=== PATIENT | female | born 1955 | race Caucasian/White ===

== ENCOUNTER → 2017-02-26 | Outpatient (CLI) | payer BC ==
[2017-02-26 10:07] LABS: ALT 34 U/L (9-52); AST 25 U/L (14-36); Alkaline Phosphatase 77 U/L (38-126); Anion Gap 10 mmol/L; Blood Urea Nitrogen 20 mg/dL (7-17); Calcium 9.4 mg/dL (8.4-10.2); Carbon Dioxide 27 mmol/L (22-30); Chloride 107 mmol/L (98-107); Cholesterol 214 mg/dL (<200); Glucose 93 mg/dL (74-99); HDL Cholesterol 49 mg/dL (40-60); Non-African American GFR(MDRD) >60 (>60 ml/min/1.73 sqM); Potassium 4.6 mmol/L (3.5-5.1); Sodium 144 mmol/L (137-145); Total Bilirubin 0.6 mg/dL (0.2-1.3); Total Protein 7.2 g/dL (6.3-8.2); Triglycerides 217 mg/dL (<150)
[2017-02-26 10:09] LABS: CHCM 33.7; HCT 41.8 % (34.0-46.0); HDW 2.74; HGB 13.7 gm/dL (11.4-16.0); MCH 30.4 pg (25.0-35.0); MCHC 32.8 g/dL (31.0-37.0); MCV 92.7 fL (80.0-100.0); Mean Platelet Volume 6.5; RBC 4.51 m/uL (3.80-5.40); RDW 13.7 % (11.5-15.5); WBC 6.9 k/uL (3.8-10.6)
== END | disposition home or self-care (01) ==
LOC: LABWHC1 08:53
PROVIDERS: ATTEND Internal Medicine
DX: Z00.01 Encounter for general adult medical examination with abnormal findings (principal); R53.83 Other fatigue
CPT/HCPCS: 36415; 80053; 80061; 84439; 84443; 85027

== ENCOUNTER 2017-09-26 07:22 | Emergency (ER) | payer BC ==
[2017-09-26] MEDS ORDERED: ONDANSETRON 4 MG/2 ML VIAL IVP STA (07:41)
[2017-09-26] MEDS ORDERED: SODIUM CHLORIDE 0.9% 1,000 ML IV STA ×2 (07:41)
[2017-09-26] MEDS ORDERED: PANTOPRAZOLE 40 MG/10 ML VIAL IVP STA (07:42)
[2017-09-26] MEDS ORDERED: RX INFO: IV CONTRAST WAS GIVEN 1 EACH MISC MISCELLANE PRN (08:24)
[2017-09-26 08:25] LABS: Basophils % (A) 1 %; Eosinophils % (A) 0 %; HCT 41.3 % (34.0-46.0); Lymphocytes # (A) 0.5 k/uL (1.0-4.8); Lymphocytes % (A) 11 %; MCH 29.9 pg (25.0-35.0); MCHC 33.9 g/dL (31.0-37.0); MCV 88.1 fL (80.0-100.0); Mean Platelet Volume 6.9; Monocytes # (A) 0.4 k/uL (0-1.0); Monocytes % (A) 9 %; Neutrophils # (A) 3.4 k/uL (1.3-7.7); Neutrophils % (A) 76 %; Platelet Count 202 k/uL (150-450); RBC 4.69 m/uL (3.80-5.40); RDW 12.9 % (11.5-15.5); WBC 4.5 k/uL (3.8-10.6)
[2017-09-26 08:29] LABS: Appearance,Urine Clear (Clear); Bilirubin,Urine Negative (Negative); Blood,Urine Negative (Negative); Color,Urine Light Yellow; Glucose,Urine (UA) Negative (Negative); Ketones,Urine Trace (Negative); Leukocyte Esterase,Urine Negative (Negative); Nitrite,Urine Negative (Negative); PH, Urine 5.5 (5.0-8.0); Protein,Urine Negative (Negative); Specific Gravity,Urine 1.004 (1.001-1.035); Urobilinogen,Urine <2.0 mg/dL (<2.0)
[2017-09-26 08:35] LABS: INR 1.1 (<1.2); Partial Thromboplastin Time 24.5 sec (22.0-30.0); Prothrombin Time 10.8 sec (9.0-12.0)
--- NOTE | 2017-09-26 08:38 | ED ---
General Adult HPI - General Chief complaint: Nausea/Vomiting/Diarrhea Stated complaint: Vomiting Time Seen by Provider: 09/26/17 07:41 Source: patient, RN notes reviewed, old records reviewed Mode of arrival: ambulatory Limitations: no limitations - History of Present Illness Initial comments: This is a 62-year-old male to the ER for evaluation. Patient presents to ER for nausea vomiting abdominal pain. Patient has had multiple issues with pain and if she is last basely 2 weeks, was started on 2 different antibiotics as well as Tamiflu. No help. Patient denies any fevers. No travel history no sick contacts. No known family members with similar symptoms. Patient just feels very sick, unable to keep food down, and has continuous pain. - Related Data Home Medications Medication Instructions Recorded Confirmed Acetaminophen Tab [Tylenol Tab] 1,000 mg PO BID PRN 08/28/16 09/26/17 Carisoprodol [Soma] 350 mg PO QID 08/28/16 09/26/17 Celecoxib [CeleBREX] 200 mg PO DAILY PRN 08/28/16 09/26/17 LORazepam [Ativan] 0.5 mg PO TID 08/28/16 09/26/17 Ondansetron [Zofran ODT] 8 mg SL QID PRN 08/28/16 09/26/17 Prochlorperazine [Compazine] 20 mg PO BID PRN 08/28/16 09/26/17 traMADol HCl [Ultram] 100 mg PO TID PRN 08/28/16 09/26/17 CLIDINIUM-chlordiazePOXIDE [Librax] 1 tab PO AC-TID PRN 09/26/17 09/26/17 Doxycycline Hyclate 100 mg PO BID 09/26/17 09/26/17 Oseltamivir [Tamiflu] 75 mg PO DAILY 09/26/17 09/26/17 Promethazine/Dextromethorphan 10 ml PO Q6H PRN 09/26/17 09/26/17 [Promethazine-Dm Syrup] Allergies Allergy/AdvReac Type Severity Reaction Status Date / Time cephalexin AdvReac Nausea & Verified 09/26/17 07:54 Vomiting ciprofloxacin AdvReac Nausea & Verified 09/26/17 07:54 Vomiting egg AdvReac Nausea & Verified 09/26/17 07:54 Vomiting & Diarrhea Penicillins AdvReac Unknown Verified 09/26/17 07:54 Childhood Review of Systems ROS Statement: Those systems with pertinent positive or pertinent negative responses have been documented in the HPI. ROS Other: All systems not noted in ROS Statement are negative. Past Medical History Past Medical History: Eye Disorder, Hyperlipidemia, Neurologic Disorder, Osteoarthritis (OA) Additional Past Medical History / Comment(s): CORNELIO TREJO. OSTEOPOROSIS. GLAUCOMA. HYPOGLYCEMIA History of Any Multi-Drug Resistant Organisms: None Reported Past Surgical History: Hysterectomy, Orthopedic Surgery Additional Past Surgical History / Comment(s): COLONOSCOPY. RT SHOULDER SX WITH MANIPULATIONS. RT KNEE SCOPE WITH INJECTIONS. POLYPS REMOVED FROM THROAT Past Anesthesia/Blood Transfusion Reactions: Motion Sickness, Postoperative Nausea & Vomiting (PONV) Past Psychological History: Anxiety Smoking Status: Former smoker - Past Family History Father Family Medical History: Cancer Additional Family Medical History / Comment(s): LUNG General Exam Limitations: no limitations General appearance: alert, in no apparent distress Head exam: Present: atraumatic, normocephalic, normal inspection Eye exam: Present: normal appearance, PERRL, EOMI. Absent: scleral icterus, conjunctival injection, periorbital swelling ENT exam: Present: normal exam, mucous membranes moist Neck exam: Present: normal inspection. Absent: tenderness, meningismus, lymphadenopathy Respiratory exam: Present: normal lung sounds bilaterally. Absent: respiratory distress, wheezes, rales, rhonchi, stridor Cardiovascular Exam: Present: regular rate, normal rhythm, normal heart sounds. Absent: systolic murmur, diastolic murmur, rubs, gallop, clicks GI/Abdominal exam: Present: soft, normal bowel sounds. Absent: distended, tenderness, guarding, rebound, rigid Extremities exam: Present: normal inspection, full ROM, normal capillary refill. Absent: tenderness, pedal edema, joint swelling, calf tenderness Back exam: Present: normal inspection Neurological exam: Present: alert, oriented X3, CN II-XII intact Psychiatric exam: Present: normal affect, normal mood Skin exam: Present: warm, dry, intact, normal color. Absent: rash Course Vital Signs 09/26/17 07:26 Temperature 97.8 F Pulse Rate 86 Respiratory 16 Rate Blood Pressure 129/79 O2 Sat by Pulse 97 Oximetry - Reevaluation(s) Reevaluation #1: 09/26/17 10:14 Patient states her nausea vomiting and pain is improved at this time EKG Findings - EKG Comments: EKG Findings:: EKG shows normal sinus rhythm rate of 66, DC 162, QRS 76, QTc 452 Medical Decision Making - Medical Decision Making 61 [place] [facility] for evaluation. Patient's 21 for evaluation of off and while, generalized body aches and pains. Nausea and vomiting. Patient is positive for influenza currently on Tamiflu will continue 10 the patient can be discharged home - Lab Data Result diagrams: 09/26/17 08:05 09/26/17 08:05 Lab Results 09/26/17 09/26/17 09/26/17 Range/Units 08:00 08:05 08:05 WBC 4.5 (3.8-10.6) k/uL RBC 4.69 (3.80-5.40) m/uL Hgb 14.0 (11.4-16.0) gm/dL Hct 41.3 (34.0-46.0) % MCV 88.1 (80.0-100.0) fL MCH 29.9 (25.0-35.0) pg MCHC 33.9 (31.0-37.0) g/dL RDW 12.9 (11.5-15.5) % Plt Count 202 (150-450) k/uL Neutrophils % 76 % Lymphocytes % 11 % Monocytes % 9 % Eosinophils % 0 % Basophils % 1 % Neutrophils # 3.4 (1.3-7.7) k/uL Lymphocytes # 0.5 L (1.0-4.8) k/uL Monocytes # 0.4 (0-1.0) k/uL Eosinophils # 0.0 (0-0.7) k/uL Basophils # 0.0 (0-0.2) k/uL PT (9.0-12.0) sec INR (<1.2) APTT (22.0-30.0) sec Sodium (137-145) mmol/L Potassium (3.5-5.1) mmol/L Chloride (98-107) mmol/L Carbon Dioxide (22-30) mmol/L Anion Gap mmol/L BUN (7-17) mg/dL Creatinine (0.52-1.04) mg/dL Est GFR (MDRD) Af Amer (>60 ml/min/1.73 sqM) Est GFR (MDRD) Non-Af (>60 ml/min/1.73 sqM) Glucose (74-99) mg/dL Plasma Lactic Acid Jose Rafael (0.7-2.0) mmol/L Calcium (8.4-10.2) mg/dL Phosphorus (2.5-4.5) mg/dL Magnesium (1.6-2.3) mg/dL Total Bilirubin (0.2-1.3) mg/dL AST (14-36) U/L ALT (9-52) U/L Alkaline Phosphatase (38-126) U/L Total Creatine Kinase 108 (30-135) U/L CK-MB (CK-2) <0.2 (0.0-2.4) ng/mL CK-MB (CK-2) Rel Index Troponin I <0.012 (0.000-0.034) ng/mL Total Protein (6.3-8.2) g/dL Albumin (3.5-5.0) g/dL Urine Color Light Yellow Urine Appearance Clear (Clear) Urine pH 5.5 (5.0-8.0) Ur Specific [place] 1.004 (1.001-1.035) Urine Protein Negative (Negative) Urine Glucose (UA) Negative (Negative) Urine Ketones Trace H (Negative) Urine Blood Negative (Negative) Urine Nitrite Negative (Negative) Urine Bilirubin Negative (Negative) Urine Urobilinogen <2.0 (<2.0) mg/dL Ur Leukocyte Esterase Negative (Negative) Influenza Type A RNA (Not Detectd) Influenza Type B (PCR) (Not Detectd) 09/26/17 09/26/17 09/26/17 Range/Units 08:05 08:05 08:05 WBC (3.8-10.6) k/uL RBC (3.80-5.40) m/uL Hgb (11.4-16.0) gm/dL Hct (34.0-46.0) % MCV (80.0-100.0) fL MCH (25.0-35.0) pg MCHC (31.0-37.0) g/dL RDW (11.5-15.5) % Plt Count (150-450) k/uL Neutrophils % % Lymphocytes % % Monocytes % % Eosinophils % % Basophils % % Neutrophils # (1.3-7.7) k/uL Lymphocytes # (1.0-4.8) k/uL Monocytes # (0-1.0) k/uL Eosinophils # (0-0.7) k/uL Basophils # (0-0.2) k/uL PT 10.8 (9.0-12.0) sec INR 1.1 (<1.2) APTT 24.5 (22.0-30.0) sec Sodium 141 (137-145) mmol/L Potassium 3.6 (3.5-5.1) mmol/L Chloride 106 (98-107) mmol/L Carbon Dioxide 24 (22-30) mmol/L Anion Gap 11 mmol/L BUN 11 (7-17) mg/dL Creatinine 0.69 (0.52-1.04) mg/dL Est GFR (MDRD) Af Amer >60 (>60 ml/min/1.73 sqM) Est GFR (MDRD) Non-Af >60 (>60 ml/min/1.73 sqM) Glucose 108 H (74-99) mg/dL Plasma Lactic Acid Jose Rafael 1.0 (0.7-2.0) mmol/L Calcium 9.2 (8.4-10.2) mg/dL Phosphorus 3.0 (2.5-4.5) mg/dL Magnesium 1.9 (1.6-2.3) mg/dL Total Bilirubin 0.3 (0.2-1.3) mg/dL AST 31 (14-36) U/L ALT 37 (9-52) U/L Alkaline Phosphatase 79 (38-126) U/L Total Creatine Kinase (30-135) U/L CK-MB (CK-2) (0.0-2.4) ng/mL CK-MB (CK-2) Rel Index Troponin I (0.000-0.034) ng/mL Total Protein 6.8 (6.3-8.2) g/dL Albumin 4.0 (3.5-5.0) g/dL Urine Color Urine Appearance (Clear) Urine pH (5.0-8.0) Ur Specific [place] (1.001-1.035) Urine Protein (Negative) Urine Glucose (UA) (Negative) Urine Ketones (Negative) Urine Blood (Negative) Urine Nitrite (Negative) Urine Bilirubin (Negative) Urine Urobilinogen (<2.0) mg/dL Ur Leukocyte Esterase (Negative) Influenza Type A RNA (Not Detectd) Influenza Type B (PCR) (Not Detectd) 09/26/17 Range/Units 08:12 WBC (3.8-10.6) k/uL RBC (3.80-5.40) m/uL Hgb (11.4-16.0) gm/dL Hct (34.0-46.0) % MCV (80.0-100.0) fL MCH (25.0-35.0) pg MCHC (31.0-37.0) g/dL RDW (11.5-15.5) % Plt Count (150-450) k/uL Neutrophils % % Lymphocytes % % Monocytes % % Eosinophils % % Basophils % % Neutrophils # (1.3-7.7) k/uL Lymphocytes # (1.0-4.8) k/uL Monocytes # (0-1.0) k/uL Eosinophils # (0-0.7) k/uL Basophils # (0-0.2) k/uL PT (9.0-12.0) sec INR (<1.2) APTT (22.0-30.0) sec Sodium (137-145) mmol/L Potassium (3.5-5.1) mmol/L Chloride (98-107) mmol/L Carbon Dioxide (22-30) mmol/L Anion Gap mmol/L BUN (7-17) mg/dL Creatinine (0.52-1.04) mg/dL Est GFR (MDRD) Af Amer (>60 ml/min/1.73 sqM) Est GFR (MDRD) Non-Af (>60 ml/min/1.73 sqM) Glucose (74-99) mg/dL Plasma Lactic Acid Jose Rafael (0.7-2.0) mmol/L Calcium (8.4-10.2) mg/dL Phosphorus (2.5-4.5) mg/dL Magnesium (1.6-2.3) mg/dL Total Bilirubin (0.2-1.3) mg/dL AST (14-36) U/L ALT (9-52) U/L Alkaline Phosphatase (38-126) U/L Total Creatine Kinase (30-135) U/L CK-MB (CK-2) (0.0-2.4) ng/mL CK-MB (CK-2) Rel Index Troponin I (0.000-0.034) ng/mL Total Protein (6.3-8.2) g/dL Albumin (3.5-5.0) g/dL Urine Color Urine Appearance (Clear) Urine pH (5.0-8.0) Ur Specific [place] (1.001-1.035) Urine Protein (Negative) Urine Glucose (UA) (Negative) Urine Ketones (Negative) Urine Blood (Negative) Urine Nitrite (Negative) Urine Bilirubin (Negative) Urine Urobilinogen (<2.0) mg/dL Ur Leukocyte Esterase (Negative) Influenza Type A RNA Not Detected (Not Detectd) Influenza Type B (PCR) Detected H (Not Detectd) - Radiology Data Radiology results: report reviewed (CT chest abdomen pelvis negative), image reviewed Disposition Clinical Impression: Influenza B Disposition: HOME SELF-CARE Condition: Good Instructions: Influenza (ED) Referrals: Allison Camarillo MD [Primary Care Provider] - 1-2 days
[2017-09-26 08:40] LABS: ALT 37 U/L (9-52); AST 31 U/L (14-36); Alkaline Phosphatase 79 U/L (38-126); Anion Gap 11 mmol/L; Blood Urea Nitrogen 11 mg/dL (7-17); Calcium 9.2 mg/dL (8.4-10.2); Carbon Dioxide 24 mmol/L (22-30); Chloride 106 mmol/L (98-107); Glucose 108 mg/dL (74-99); Magnesium 1.9 mg/dL (1.6-2.3); Potassium 3.6 mmol/L (3.5-5.1); Sodium 141 mmol/L (137-145); Total Bilirubin 0.3 mg/dL (0.2-1.3); Total Protein 6.8 g/dL (6.3-8.2)
[2017-09-26] MEDS ORDERED: KETOROLAC 30 MG/ML 1 ML VIAL IVP STA (08:45)
[2017-09-26] MEDS ORDERED: DEXAMETHASONE SOD PHOSPHATE 10 MG/ML 1 ML VIAL IM STA (08:45)
[2017-09-26 08:52] LABS: Creatine Kinase 108 U/L (30-135)
[2017-09-26 09:04] LABS: Creatine Kinase MB <0.2 ng/mL (0.0-2.4); Troponin I <0.012 ng/mL (0.000-0.034)
--- NOTE | 2017-09-26 09:40 | CT ---
EXAMINATION TYPE: CT abdomen pelvis w con DATE OF EXAM: 09/26/2017 COMPARISON: CT abdomen pelvis 03/25/2011 INDICATION: Vomiting, Generalized pain and Positive Flu DLP: 1699.00 mGycm, Automated exposure control for dose reduction was used. CONTRAST: 100 ml mL of Omnipaque 350. Study performed without Oral Contrast TECHNIQUE: Axial images were obtained from above the diaphragm to the pubic rami in the axial plane a t 5 mm thick sections. Reconstructed images are reviewed on the computer in the coronal plane. FINDINGS: CT chest: Minimal scarring may be at the left apex. Minimal compressive atelectasis is within the dep endent portions of the lung bases. No discrete masses or cysts are evident. Portion of the thyroid visualized is normal. The subglottic airway appears unremarkable. The ascendin g thoracic aorta at the level of the main pulmonary artery measures 2.9 cm patent main pulmonary ren ry at the bifurcation measures 2.7 cm. No enlarged mediastinal or hilar adenopathy is evident. CT ABDOMEN: Liver: There is a 1.1 cm hypodensity within the superior right lobe liver measuring -6 [place]ounsfield uni ts may be a cyst. A punctate hypodensities in the posterior right portion of the liver too small to c haracterize. Additional punctate hypodensities on delayed images with contrast suggestive of addition al tiny cysts. Spleen: Normal. Splenule is anterior to the splenic hilum. Pancreas: Normal Adrenal glands: The adrenal glands are normal. Gallbladder: Normal Kidneys: No masses are evident. No hydronephrosis is present. There is a hypodense area within the lateral left kidney. This measures 43 Hounsfield units. This cannot be classified as a simple cyst. F ollow-up is recommended. Delayed images were obtained through the kidneys. Aorta: Vascular calcification is within the aorta. Inferior vena cava: Normal. CT PELVIS: Loops of bowel within the abdomen and pelvis are normal. Study is performed without oral contrast limiting evaluation of loops of bowel. A few diverticular changes are within the sigmoid colon. No d ilated loops of bowel are evident. No suspicious air-fluid levels or fluid dilated loops of bowel are evident. Appendix: Normal as visualized. Urinary bladder: Normal. Genitourinary structures: Uterus and ovaries are not identified. Osseous structures: No suspicious lytic or sclerotic lesions. Some mild facet degenerative changes wi thin the lower lumbar spine. COMPARISON: CT abdomen pelvis 07/26/2011. These suspected cysts within the liver and left kidney appe ar stable over the interval. IMPRESSIONS: 1. No acute process. 2. Hepatic cysts. 3. Stable complex cyst left kidney
--- NOTE | 2017-09-26 09:58 | CT ---
CT CHEST FOR PULMONARY EMBOLISM. EXAMINATION TYPE: CT angio chest DATE OF EXAM: 09/26/2017 INDICATION: Vomiting, Generalized pain, Positive flu CT DLP: 1699.00 mGycm, Automated exposure control for dose reduction was used. CONTRAST: Patient injected with 100 ml mL of Omnipaque 350. COMPARISON: CT abdomen pelvis same date. TECHNIQUE: CT of the chest is performed on a spiral scan at 2 mm thick sections. Study is performed with intravenous contrast timed for evaluation for pulmonary embolism. This will limit additional po rtions of the evaluation. 3-D MIP images reconstructed by the technologist are reviewed on the compu ter in the coronal and sagittal planes. FINDINGS: This dictation supplements the CT abdomen dictation of 09/26/2016 No persistent filling defects are evident to suggest an acute pulmonary embolism. No mediastinal or hilar adenopathy enlarged by CT criteria is evident. The ascending aorta diameter at the level of the main pulmonary artery is 2.9 cm. The main pulmonary artery diameter at the bifur cation is 2.7 cm. There may be minimal scarring at the left apex. Minimal compressive atelectasis is within the depende nt portions of the bilateral lung bases. No discrete masses or consolidations are evident. Minimal 0. 4 cm pleural thickening along the posterior lateral left upper lobe may be present. Series [address] abdomen pelvis report for additional nonacute findings. IMPRESSIONS: 1. No acute pulmonary embolism.
[2017-09-26 10:42] VITALS: BP 132/59; PULSE 64; RESP 18; TEMP 97
== END 2017-09-26 10:42 | disposition home or self-care (01) ==
LOC: EC 07:22
DX: J10.1 Influenza due to other identified influenza virus with other respiratory manifestations (principal); F41.9 Anxiety disorder, unspecified; Z87.891 Personal history of nicotine dependence; Z88.1 Allergy status to other antibiotic agents; Z88.0 Allergy status to penicillin; Z91.012 Allergy to eggs; Z79.899 Other long term (current) drug therapy
CPT/HCPCS: 99285; 96372; 96374; 96375 ×2; 96361 ×2; 36415; 93005; 80053; 82550; 82553; 83605; 83735; 84100; 84484; 85025; 85610; 85730; 81003; 87086; 87502; 71275; 74177; J1100; Q9967; J2405; J1885; C9113

== ENCOUNTER → 2018-10-15 | Outpatient (CLI) | payer BC ==
--- NOTE | 2018-10-17 09:58 | MM ---
Reason for exam: screening (asymptomatic). Last mammogram was performed 1 year and 8 months ago. History: Patient had first child at age 32. Family history of breast cancer in maternal aunt at age 60. Physical Findings: A clinical breast exam by your physician is recommended on an annual basis and results should be correlated with mammographic findings. MG 3D Screening Mammo W/Cad Bilateral CC and MLO view(s) were taken. Prior study comparison: February 21, 2017, mammogram, performed at [facility]. March 17, 2015, mammogram, performed at [facility]. The breast tissue is almost entirely fat. There is chronic nodularity bilaterally. No significant changes when compared with prior studies. ASSESSMENT: Benign, BI-RAD 2 RECOMMENDATION: Routine screening mammogram of both breasts in 1 year.
== END | disposition home or self-care (01) ==
LOC: RADMAMWWP 16:41
PROVIDERS: ATTEND Internal Medicine
DX: Z12.31 Encounter for screening mammogram for malignant neoplasm of breast (principal)
CPT/HCPCS: 77063; 77067

== ENCOUNTER 2018-12-17 06:06 | Inpatient (IN) | payer BC ==
[2018-12-17] MEDS ORDERED: SODIUM CHLORIDE 0.9% 2,000 ML IV STA (07:10)
[2018-12-17] MEDS ORDERED: KETOROLAC 30 MG/ML 1 ML VIAL IVP STA (07:10)
[2018-12-17] MEDS ORDERED: diphenhydrAMINE 50 MG/ML 1 ML VIAL IVP STA (07:10)
[2018-12-17] MEDS ORDERED: ONDANSETRON 4 MG/2 ML VIAL IVP STA (07:10)
--- NOTE | 2018-12-17 07:14 | ED ---
Abdominal Pain HPI - General Source: patient, family, RN notes reviewed Mode of arrival: ambulatory Limitations: no limitations <Romeo Garcia - Last Filed: 12/17/18 09:34> <Oswald Cox - Last Filed: 12/17/18 09:56> - General Chief Complaint: Abdominal Pain Stated Complaint: NVD Time Seen by Provider: 12/17/18 07:05 - History of Present Illness Initial Comments: This a 63-year-old female presents emergency Department chief complaint of nausea vomiting and diarrhea. Patient states that she woke up onto a.m. with this. Patient states is a sudden onset she does have some upper abdominal pain or left-sided but states that she feels this is from vomiting. Patient has been recently treated for urinary tract infection. Denies any known fever complaints or chills. Denies any shortness breath, headache or dizziness. Patient states that she just feels miserable no contacts with some her symptoms. Patient had a prior hysterectomy. Patient also states that she injured her right knee. Patient had prior miscarriages repair in October states that she got up quickly and twisted it. Patient states painful. Patient states cannot take pain meds as they make her sick. (Romeo Garcia) - Related Data Home Medications Medication Instructions Recorded Confirmed Acetaminophen Tab [Tylenol Tab] 1,000 mg PO BID PRN 08/28/16 12/17/18 Carisoprodol [Soma] 350 mg PO TID 08/28/16 12/17/18 Celecoxib [CeleBREX] 200 mg PO BID 08/28/16 12/17/18 LORazepam [Ativan] 0.5 mg PO TID 08/28/16 12/17/18 Prochlorperazine [Compazine] 20 mg PO BID PRN 08/28/16 12/17/18 Previous Rx's Medication Instructions Recorded Ondansetron Odt [Zofran ODT] 4 mg PO Q8HR PRN #30 tab 09/26/17 Allergies Allergy/AdvReac Type Severity Reaction Status Date / Time cephalexin AdvReac Nausea & Verified 12/17/18 08:11 Vomiting ciprofloxacin AdvReac Nausea & Verified 12/17/18 08:11 Vomiting codeine AdvReac Unknown Verified 12/17/18 08:11 egg AdvReac Nausea & Verified 12/17/18 08:11 Vomiting & Diarrhea Penicillins AdvReac Unknown Verified 12/17/18 08:11 Childhood Review of Systems ROS Other: All systems not noted in ROS Statement are negative. <Romeo Garcia - Last Filed: 12/17/18 09:34> ROS Other: All systems not noted in ROS Statement are negative. <Oswald Cox - Last Filed: 12/17/18 09:56> ROS Statement: Those systems with pertinent positive or pertinent negative responses have been documented in the HPI. Past Medical History Past Medical History: Eye Disorder, Hyperlipidemia, Neurologic Disorder, Osteoarthritis (OA) Additional Past Medical History / Comment(s): CORNELIO TREJO. OSTEOPOROSIS. GLAUCOMA. HYPOGLYCEMIA History of Any Multi-Drug Resistant Organisms: None Reported Past Surgical History: Hysterectomy, Orthopedic Surgery Additional Past Surgical History / Comment(s): COLONOSCOPY. RT SHOULDER SX WITH MANIPULATIONS. RT KNEE SCOPE WITH INJECTIONS. POLYPS REMOVED FROM THROAT Past Anesthesia/Blood Transfusion Reactions: Motion Sickness, Postoperative Nausea & Vomiting (PONV) Past Psychological History: Anxiety Smoking Status: Former smoker Past Alcohol Use History: None Reported Past Drug Use History: None Reported - Past Family History Father Family Medical History: Cancer Additional Family Medical History / Comment(s): LUNG <Romeo Garcia - Last Filed: 12/17/18 09:34> General Exam Limitations: no limitations General appearance: alert, in no apparent distress Head exam: Present: atraumatic, normocephalic, normal inspection Neck exam: Present: normal inspection. Absent: tenderness, meningismus, lymphadenopathy Respiratory exam: Present: normal lung sounds bilaterally. Absent: respiratory distress, wheezes, rales, rhonchi, stridor Cardiovascular Exam: Present: regular rate, normal rhythm, normal heart sounds. Absent: systolic murmur, diastolic murmur, rubs, gallop, clicks GI/Abdominal exam: Present: soft, tenderness (Mild epigastric), normal bowel sounds. Absent: distended, guarding, rebound, rigid Neurological exam: Present: alert, oriented X3, CN II-XII intact Skin exam: Present: warm, dry, intact, normal color. Absent: rash <Romeo Garcia - Last Filed: 12/17/18 09:34> Course <Oswald Cox - Last Filed: 12/17/18 09:56> Vital Signs 12/17/18 12/17/18 06:24 09:54 Temperature 97.7 F 97.6 F Pulse Rate 94 86 Respiratory 18 20 Rate Blood Pressure 128/72 126/67 O2 Sat by Pulse 99 97 Oximetry - Reevaluation(s) Reevaluation #1: 12/17/18 09:56 PA supervision I did personally review this case and did discuss findings with Dr. Brannon the patient be admitted with consultation by surgery. Diverticulitis versus colitis. I do agree with the assessment and plan (Oswald Cox) Medical Decision Making - Lab Data Result diagrams: 12/17/18 07:49 12/17/18 07:49 <Romeo Garcia - Last Filed: 12/17/18 09:34> - Lab Data Result diagrams: 12/17/18 07:49 12/17/18 07:49 <Oswald Cox - Last Filed: 12/17/18 09:56> - Medical Decision Making 63-year-old female presented for abdominal pain. Patient CT shows evidence of multifocal colitis versus diverticulitis. Patient's symptoms are consistent with this. Patient will be admitted for IV antibiotics, IV hydration, antiemetics and pain medication (Romeo Garcia) - Lab Data Lab Results 12/17/18 12/17/18 12/17/18 Range/Units 07:49 07:49 07:49 WBC 11.2 H (3.8-10.6) k/uL RBC 4.40 (3.80-5.40) m/uL Hgb 13.2 (11.4-16.0) gm/dL Hct 38.8 (34.0-46.0) % MCV 88.2 (80.0-100.0) fL MCH 30.0 (25.0-35.0) pg MCHC 34.0 (31.0-37.0) g/dL RDW 13.8 (11.5-15.5) % Plt Count 260 (150-450) k/uL Neutrophils % 92 % Lymphocytes % 3 % Monocytes % 3 % Eosinophils % 2 % Basophils % 0 % Neutrophils # 10.3 H (1.3-7.7) k/uL Lymphocytes # 0.3 L (1.0-4.8) k/uL Monocytes # 0.3 (0-1.0) k/uL Eosinophils # 0.2 (0-0.7) k/uL Basophils # 0.0 (0-0.2) k/uL Sodium 141 (137-145) mmol/L Potassium 4.0 (3.5-5.1) mmol/L Chloride 109 H (98-107) mmol/L Carbon Dioxide 24 (22-30) mmol/L Anion Gap 8 mmol/L BUN 18 H (7-17) mg/dL Creatinine 0.55 (0.52-1.04) mg/dL Est GFR (CKD-EPI)AfAm >90 (>60 ml/min/1.73 sqM) Est GFR (CKD-EPI)NonAf >90 (>60 ml/min/1.73 sqM) Glucose 137 H (74-99) mg/dL Calcium 9.4 (8.4-10.2) mg/dL Total Bilirubin 0.5 (0.2-1.3) mg/dL AST 28 (14-36) U/L ALT 35 (9-52) U/L Alkaline Phosphatase 82 (38-126) U/L Troponin I <0.012 (0.000-0.034) ng/mL Total Protein 6.7 (6.3-8.2) g/dL Albumin 4.0 (3.5-5.0) g/dL Amylase 52 (30-110) U/L Lipase 102 (23-300) U/L Disposition <Romeo Garcia - Last Filed: 12/17/18 09:34> <Oswald Cox - Last Filed: 12/17/18 09:56> Clinical Impression: Diverticulitis Disposition: ADMITTED IP TO THIS HOSP Condition: Fair Referrals: Allison Camarillo MD [Primary Care Provider] - 1-2 days
[2018-12-17 07:59] LABS: Basophils % (A) 0 %; Eosinophils # (A) 0.2 k/uL (0-0.7); Eosinophils % (A) 2 %; HCT 38.8 % (34.0-46.0); HGB 13.2 gm/dL (11.4-16.0); Lymphocytes # (A) 0.3 k/uL (1.0-4.8); Lymphocytes % (A) 3 %; MCV 88.2 fL (80.0-100.0); Mean Platelet Volume 6.6; Monocytes # (A) 0.3 k/uL (0-1.0); Monocytes % (A) 3 %; Neutrophils # (A) 10.3 k/uL (1.3-7.7); Neutrophils % (A) 92 %; Platelet Count 260 k/uL (150-450); RDW 13.8 % (11.5-15.5); WBC 11.2 k/uL (3.8-10.6)
[2018-12-17 08:11] LABS: ALT 35 U/L (9-52); AST 28 U/L (14-36); Alkaline Phosphatase 82 U/L (38-126); Amylase 52 U/L (30-110); Anion Gap 8 mmol/L; Blood Urea Nitrogen 18 mg/dL (7-17); Calcium 9.4 mg/dL (8.4-10.2); Carbon Dioxide 24 mmol/L (22-30); Chloride 109 mmol/L (98-107); Glucose 137 mg/dL (74-99); Lipase 102 U/L (23-300); Sodium 141 mmol/L (137-145); Total Bilirubin 0.5 mg/dL (0.2-1.3); Total Protein 6.7 g/dL (6.3-8.2)
--- NOTE | 2018-12-17 08:45 | CT ---
EXAMINATION TYPE: CT abdomen pelvis w con DATE OF EXAM: 12/17/2018 HISTORY: Pain, nausea, vomiting, and diarrhea CT DLP: 1090.3mGycm Automated Exposure Control for Dose Reduction was Utilized. CONTRAST: CT scan of the abdomen and pelvis is performed with IV Contrast, patient injected with 100 mL of Isov ue 300. COMPARISON: 09/26/2017 FINDINGS: LUNG BASES: There is minimal bibasilar dependent subsegmental atelectasis. There is a small hiatal he rnia present.. LIVER/GB: Stable hepatic cyst and too small to accurately characterize additional hepatic lesion on i mage 9. Additional scattered subcentimeter lesions are markedly hypoattenuated and likely represent p unctate cysts. No cholelithiasis. Common bile duct is within normal limits on coronal image 40 measur ing 5 mm. PANCREAS: No significant abnormality is seen. SPLEEN: Splenule is present adjacent to the minto spleen. ADRENALS: There is thickening of the left adrenal gland although it maintains a normal adreniform sha pe suggesting adrenal gland hyperplasia.. KIDNEYS: Stable left renal lesion that is subcentimeter and too small to accurately characterize (6 m m). No hydronephrosis of either kidney. BOWEL: There is subtle pericolonic fat stranding of the sigmoid colon surrounding numerous sigmoid co lonic diverticuli. No pericolonic abscess nor pneumoperitoneum is seen. Very subtle fat stranding of the transverse colon and hepatic flexure are also seen. No dilated large or small bowel. UTERUS/ADNEXA: Uterus is surgically absent. LYMPH NODES: No greater than 1cm abdominal or pelvic lymph nodes are appreciated. OSSEOUS STRUCTURES: No significant abnormality is seen. OTHER: Urinary bladder wall thickening is subtle and may partially relate to incomplete distention or surrounding inflammatory change. IMPRESSION: 1. Although mild pericolonic fat stranding is most pronounced in the sigmoid colon surrounding divert iculi there is also very subtle pericolonic fat stranding of the hepatic flexure and transverse colon and therefore differential includes both multifocal colitis and acute uncomplicated diverticulitis. 2. Small hiatal hernia. 3. Simple hepatic cyst and too small to accurately characterize hepatic and renal lesions.
[2018-12-17] MEDS ORDERED: NALOXONE 0.4 MG/ML 1 ML VIAL IV PRN (09:35)
[2018-12-17] MEDS ORDERED: ONDANSETRON 4 MG/2 ML VIAL IVP PRN ×2 (09:35→11:41)
[2018-12-17] MEDS ORDERED: ACETAMINOPHEN TAB 325 MG TAB PO PRN (09:35)
[2018-12-17] MEDS ORDERED: metroNIDAZOLE-NS PMX 500 MG in SALINE 1 100ML.BAG IVPB STA (09:38)
[2018-12-17] MEDS ORDERED: LEVOFLOXACIN 750MG-D5W PMX 750 MG in DEXTROSE/WATER 1 150ML.BAG IVPB STA (09:38)
[2018-12-17] MEDS ORDERED: SODIUM CHLORIDE 0.9% 1,000 ML IV SCH (09:45)
[2018-12-17 10:03] LABS: Appearance,Urine Clear (Clear); Bilirubin,Urine Negative (Negative); Blood,Urine Negative (Negative); Color,Urine Light Yellow; Glucose,Urine (UA) Negative (Negative); Ketones,Urine 1+ (Negative); Leukocyte Esterase,Urine Negative (Negative); Nitrite,Urine Negative (Negative); PH, Urine 7.5 (5.0-8.0); Protein,Urine Negative (Negative); Specific Gravity,Urine 1.041 (1.001-1.035); Urobilinogen,Urine <2.0 mg/dL (<2.0)
[2018-12-17 11:06] VITALS: BMI 34.3
[2018-12-17] MEDS: HYDROmorphone 0.5 MG/0.5 ML SYRINGE IVP PRN ×2 (11:06→14:47)
[2018-12-17] MEDS ORDERED: METOCLOPRAMIDE 5 MG/ML 2 ML VIAL IVP PRN (11:40)
[2018-12-17] MEDS: DEXTROSE 5%-0.9% NACL 1,000 ML IV SCH (11:56)
[2018-12-17] MEDS: ONDANSETRON 8 MG in SODIUM CHLORIDE 0.9% 50 ML IVPB PRN ×2 (14:47→21:14)
[2018-12-17] MEDS: KETOROLAC 30 MG/ML 1 ML VIAL IVP PRN ×2 (14:47→20:57)
[2018-12-17] MEDS ORDERED: metroNIDAZOLE-NS PMX 500 MG in SALINE 1 100ML.BAG IVPB SCH (16:00)
--- NOTE | 2018-12-17 17:23 | P.GSCN ---
History of Present Illness Consult date: 12/17/18 History of present illness: 63-year-old female presented to the emergency department with complaints of abdominal pain. She states that the pain started approximately 2 days ago and worsened. She denies ever having any pain like this previously. She also complains of nausea and emesis episodes. She states that approximately 2 months ago she did undergo a knee procedure and at that time was constipated and did begin stool softeners. After that time, she states that she underwent multiple sinus and upper respiratory infections along with a UTI and had been on differ ent courses of antibiotics including amoxicillin and Augmentin. She states that after these Louann courses, she did develop diarrhea. She states that for the last 5-7 days she has not had much bowel function. She denies any blood in her stool. She states her only previous abdominal surgery is a hysterectomy approximately 30 years ago. She states that her last colonoscopy was 2 years ago with no significant findings. She has no additional complaints at this time. CT of the abdomen and pelvis was performed that did show inflammatory changes in multiple spots of the colon. Review of Systems All systems: negative Past Medical History Past Medical History: Eye Disorder, Hyperlipidemia, Neurologic Disorder, Osteoarthritis (OA) Additional Past Medical History / Comment(s): CORNELIO TREJO. OSTEOPOROSIS. GLAUCOMA. HYPOGLYCEMIA History of Any Multi-Drug Resistant Organisms: None Reported Past Surgical History: Hysterectomy, Orthopedic Surgery Additional Past Surgical History / Comment(s): COLONOSCOPY. RT SHOULDER SX WITH MANIPULATIONS. RT KNEE SCOPE WITH INJECTIONS. POLYPS REMOVED FROM THROAT Past Anesthesia/Blood Transfusion Reactions: Motion Sickness, Postoperative Nausea & Vomiting (PONV) Past Psychological History: Anxiety Smoking Status: Never smoker Past Alcohol Use History: None Reported Additional Past Alcohol Use History / Comment(s): QUIT SMOKING IN THE Past Drug Use History: None Reported - Past Family History Father Family Medical History: Cancer Additional Family Medical History / Comment(s): LUNG Medications and Allergies Home Medications Medication Instructions Recorded Confirmed Type Acetaminophen Tab [Tylenol Tab] 1,000 mg PO BID PRN 08/28/16 12/17/18 History Carisoprodol [Soma] 350 mg PO TID 08/28/16 12/17/18 History Celecoxib [CeleBREX] 200 mg PO BID 08/28/16 12/17/18 History LORazepam [Ativan] 0.5 mg PO TID 08/28/16 12/17/18 History Prochlorperazine [Compazine] 20 mg PO BID PRN 08/28/16 12/17/18 History Ondansetron Odt [Zofran ODT] 4 mg PO Q8HR PRN #30 tab 09/26/17 12/17/18 Rx Allergies Allergy/AdvReac Type Severity Reaction Status Date / Time cephalexin AdvReac Nausea & Verified 12/17/18 10:48 Vomiting ciprofloxacin AdvReac Nausea & Verified 12/17/18 10:48 Vomiting codeine AdvReac Unknown Verified 12/17/18 10:48 egg AdvReac Nausea & Verified 12/17/18 10:48 Vomiting & Diarrhea Penicillins AdvReac Unknown Verified 12/17/18 10:48 Childhood Surgical - Exam Osteopathic Statement: *. No significant issues noted on an osteopathic structural exam other than those noted in the History and Physical/Consult. Vital Signs Temp Pulse Resp BP Pulse Ox 97.7 F 94 18 128/72 99 12/17/18 06:24 12/17/18 06:24 12/17/18 06:24 12/17/18 06:24 12/17/18 06:24 - General well nourished, no distress - Eyes PERRL, normal ocular movement - ENT normal mucosa, no hearing loss - Neck trachea midline - Respiratory normal respiratory effort - Abdomen Soft, mild generalized tenderness, nondistended, no rebound, no guarding - Neurologic normal coordination, normal sensation - Psychiatric oriented to time, oriented to person, oriented to place Results - Labs 12/17/18 07:49 12/17/18 07:49 Abnormal Lab Results - Last 24 Hours (Table) 12/17/18 12/17/18 12/17/18 Range/Units 07:49 07:49 09:30 WBC 11.2 H (3.8-10.6) k/uL Neutrophils # 10.3 H (1.3-7.7) k/uL Lymphocytes # 0.3 L (1.0-4.8) k/uL Chloride 109 H (98-107) mmol/L BUN 18 H (7-17) mg/dL Glucose 137 H (74-99) mg/dL Ur Specific [place] 1.041 H (1.001-1.035) Urine Ketones 1+ H (Negative) Diabetes panel 12/17/18 Range/Units 07:49 Sodium 141 (137-145) mmol/L Potassium 4.0 (3.5-5.1) mmol/L Chloride 109 H (98-107) mmol/L Carbon Dioxide 24 (22-30) mmol/L BUN 18 H (7-17) mg/dL Creatinine 0.55 (0.52-1.04) mg/dL Glucose 137 H (74-99) mg/dL Calcium 9.4 (8.4-10.2) mg/dL AST 28 (14-36) U/L ALT 35 (9-52) U/L Alkaline Phosphatase 82 (38-126) U/L Total Protein 6.7 (6.3-8.2) g/dL Albumin 4.0 (3.5-5.0) g/dL Calcium panel 12/17/18 Range/Units 07:49 Calcium 9.4 (8.4-10.2) mg/dL Albumin 4.0 (3.5-5.0) g/dL Pituitary panel 12/17/18 Range/Units 07:49 Sodium 141 (137-145) mmol/L Potassium 4.0 (3.5-5.1) mmol/L Chloride 109 H (98-107) mmol/L Carbon Dioxide 24 (22-30) mmol/L BUN 18 H (7-17) mg/dL Creatinine 0.55 (0.52-1.04) mg/dL Glucose 137 H (74-99) mg/dL Calcium 9.4 (8.4-10.2) mg/dL Adrenal panel 12/17/18 Range/Units 07:49 Sodium 141 (137-145) mmol/L Potassium 4.0 (3.5-5.1) mmol/L Chloride 109 H (98-107) mmol/L Carbon Dioxide 24 (22-30) mmol/L BUN 18 H (7-17) mg/dL Creatinine 0.55 (0.52-1.04) mg/dL Glucose 137 H (74-99) mg/dL Calcium 9.4 (8.4-10.2) mg/dL Total Bilirubin 0.5 (0.2-1.3) mg/dL AST 28 (14-36) U/L ALT 35 (9-52) U/L Alkaline Phosphatase 82 (38-126) U/L Total Protein 6.7 (6.3-8.2) g/dL Albumin 4.0 (3.5-5.0) g/dL - Imaging CT scan - abdomen: report reviewed, image reviewed CT scan - pelvis: report reviewed, image reviewed Assessment and Plan (1) Diverticulitis Narrative/Plan: 63-year-old female with colitis/diverticulitis - Patient is currently experiencing nausea and emesis episodes, we will keep her nothing by mouth for now - Continue antibiotics. Patient is currently on Levaquin and Flagyl - Continue antiemetics as necessary - Protonix - I will continue to follow and make recommendations throughout the patient's admission. Thank you for this consultation, I look forward in providing in the patient's care Current Visit: Yes Status: Acute Code(s): K57.92 - DVTRCLI OF INTEST, PART UNSP, W/O PERF OR ABSCESS W/O BLEED SNOMED Code(s): 647535505
[2018-12-17] MEDS: PANTOPRAZOLE 40 MG/10 ML VIAL IVP SCH (20:56)
[2018-12-17] MEDS ORDERED: PROCHLORPERAZINE 10 MG TAB PO PRN (21:48)
--- NOTE | 2018-12-17 23:23 | HP ---
HISTORY AND PHYSICAL CHIEF COMPLAINT: Abdominal pain. HISTORY OF PRESENT ILLNESS: A 63-year-old woman with a past medical history of multiple medical problems including hyperlipidemia, history of Isabell-Ma virus, osteoporosis, glaucoma, hysterectomy, being followed by Dr. Camarillo in the outpatient setting, was complaining of severe abdominal pain. The patient also has nausea and diarrhea as well. The patient also had pain mostly in the lower part of the abdomen on the right side and the patient was recently treated for urinary tract infection. Patient had taken multiple antibiotics also. Because of multiple medical problems, the patient came to [facility] and was admitted for further evaluation and treatment. CT scan showed suggestion of possible sigmoid diverticulitis. Patient treated symptomatically and currently the patient is also evaluated by Dr. Easton from surgery also. The possibility of colitis or diverticulitis is being entertained. There is no history of fever, rigors. PAST MEDICAL HISTORY: Hyperlipidemia, history of DJD, history of Isabell Ma virus, history of glaucoma, history of colonoscopy. History of arthroscopic surgery on the right knee MEDICATIONS: Home medications are: 1. Compazine 20 mg p.o. b.i.d. p.r.n. 2. Zofran 4 mg q.8 p.r.n. 3. Ativan 0.5 mg t.i.d. 4. Celebrex 200 mg p.o. b.i.d. 5. Soma 350 mg t.i.d. 6. Tylenol 1000 mg b.i.d. p.r.n. ALLERGIES: CEPHALEXIN, CIPRO, CODEINE, PENICILLIN. FAMILY HISTORY: History of cancer, lung colon cancer in the family. SOCIAL HISTORY: No history of smoking. No history of alcohol. REVIEW OF SYSTEMS: ENT: No diminished hearing or vision. CARDIOVASCULAR: No angina. RESPIRATORY: As mentioned earlier. GASTROINTESTINAL: As mentioned earlier. : No dysuria. CENTRAL NERVOUS SYSTEM: No numbness, weakness. ALLERGY/IMMUNOLOGY: No asthma or hayfever. MUSCULOSKELETAL: As mentioned earlier. HEMATOLOGY/ONCOLOGY: No history of anemia. ENDOCRINE: No history of diabetes or hypothyroidism. CONSTITUTIONAL: As mentioned earlier. Dermatology: Negative. Rheumatology: Negative. Psychiatry: As mentioned earlier. PHYSICAL EXAMINATION: GENERAL: The patient is alert and oriented times three. VITAL SIGNS: Pulse is 94, blood pressure 120/70, respiration 18, temperature 97.7, pulse ox 98% on room air. HEENT: Conjunctivae normal. NECK: No jugular venous distention. CARDIOVASCULAR: S1, S2 muffled. RESPIRATORY: Breath sounds diminished in the bases. No rhonchi. No crackles. ABDOMEN: Soft. Mild diffuse tenderness in the lower part. No guarding. No rigidity. No mass palpable. LEGS: No edema. No swelling. NERVOUS SYSTEM: Higher functions as mentioned earlier. Moves all four extremities. No focal motor or sensory deficits. Lymphatics: No lymph nodes palpable in the neck, axillae or groin. SKIN: No ulcer, no rash. No bleeding. JOINTS: No active deforming arthropathy. LABS: WBC 11.8, hemoglobin 13.2, sodium 141, potassium 4, glucose 137. UA noted. ASSESSMENT: 1. Abdominal pain, nausea, vomiting, possible acute sigmoid diverticulitis, colitis. 2. History of hyperlipidemia. 3. History of degenerative joint disease. 4. History of Isabell Ma virus. 5. History of osteoporosis. 6. History of right knee surgery. 7. History of colonoscopy. 8. History of anxiety. 9. Remote history of nicotine dependence. 10.FULL CODE. RECOMMENDATIONS AND DISCUSSION: In this 63-year-old woman who presented with multiple complex medical issues, we will monitor the patient closely, continue the current medications, management and symptomatic treatment. Resume home medications. Symptomatic treatment. Levaquin and Flagyl per surgery. Otherwise continue to monitor. Guarded prognosis because of multiple complex medical issues. Currently on n.p.o. diet and further recommendations to follow. A copy of dictation being forwarded to Dr. Camarillo, who is the primary physician. MMLOYDAL / IJN: [id number] /
[2018-12-18] MEDS: metroNIDAZOLE-NS PMX 500 MG in SALINE 1 100ML.BAG IVPB SCH ×4 (00:07→23:18)
[2018-12-18] MEDS: LORazepam 0.5 MG TAB PO SCH ×4 (03:28→21:57)
[2018-12-18] MEDS: CARISOPRODOL 350 MG TAB PO SCH ×4 (03:28→21:57)
[2018-12-18] MEDS: DEXTROSE 5%-0.9% NACL 1,000 ML IV SCH ×2 (03:34→16:54)
[2018-12-18] MEDS: ONDANSETRON 8 MG in SODIUM CHLORIDE 0.9% 50 ML IVPB PRN (03:35)
[2018-12-18] MEDS: KETOROLAC 30 MG/ML 1 ML VIAL IVP PRN ×4 (03:35→23:19)
[2018-12-18] MEDS: PANTOPRAZOLE 40 MG/10 ML VIAL IVP SCH ×2 (08:08→21:57)
[2018-12-18 08:35] LABS: Basophils % (A) 0 %; Eosinophils # (A) 0.2 k/uL (0-0.7); Eosinophils % (A) 3 %; HCT 35.6 % (34.0-46.0); HGB 11.8 gm/dL (11.4-16.0); Lymphocytes # (A) 0.9 k/uL (1.0-4.8); Lymphocytes % (A) 18 %; MCHC 33.1 g/dL (31.0-37.0); MCV 90.5 fL (80.0-100.0); Mean Platelet Volume 6.5; Monocytes # (A) 0.3 k/uL (0-1.0); Monocytes % (A) 6 %; Neutrophils # (A) 3.4 k/uL (1.3-7.7); Neutrophils % (A) 71 %; Platelet Count 244 k/uL (150-450); RBC 3.93 m/uL (3.80-5.40); RDW 14.2 % (11.5-15.5); WBC 4.8 k/uL (3.8-10.6)
[2018-12-18 08:52] LABS: Anion Gap 5 mmol/L; Blood Urea Nitrogen 11 mg/dL (7-17); Calcium 8.3 mg/dL (8.4-10.2); Carbon Dioxide 25 mmol/L (22-30); Chloride 113 mmol/L (98-107); Glucose 94 mg/dL (74-99); Potassium 3.5 mmol/L (3.5-5.1); Sodium 143 mmol/L (137-145)
[2018-12-18] MEDS: LEVOFLOXACIN 750MG-D5W PMX 750 MG in DEXTROSE/WATER 1 150ML.BAG IVPB SCH (10:08)
--- NOTE | 2018-12-18 16:12 | P.PN ---
Subjective Progress Note Date: 12/18/18 Patient seen and examined at bedside. She states that her abdominal pain is mildly improved. States her nausea has improved. She has not noticed episodes since yesterday morning. States she is passing gas but has not had a bowel movement. Objective - Vital Signs Vital signs: Vital Signs Temp 97.5 F L 12/18/18 12:21 Pulse 65 12/18/18 12:21 Resp 16 12/18/18 12:21 BP 128/66 12/18/18 12:21 Pulse Ox 97 12/18/18 12:21 Intake & Output 12/17/18 12/18/18 12/18/18 18:59 06:59 18:59 Intake Total 30 Output Total 45 Balance -45 30 Weight 90.718 kg Intake: Oral 30 Output: Emesis 45 Other: Voiding Method Toilet Toilet Toilet # Voids 1 1 - Constitutional General appearance: Present: cooperative, no acute distress - EENT Eyes: Present: PERRLA - Respiratory Details: No difficulty with respiration - Gastrointestinal Gastrointestinal Comment(s): Soft, mild generalized tenderness, nondistended, no rebound, guarding - Musculoskeletal Musculoskeletal: Present: generalized weakness - Psychiatric Psychiatric: Present: A&O x's 3 - Labs CBC & Chem 7: 12/18/18 08:06 12/18/18 08:06 Labs: Abnormal Lab Results - Last 24 Hours (Table) 12/18/18 12/18/18 Range/Units 08:06 08:06 Lymphocytes # 0.9 L (1.0-4.8) k/uL Chloride 113 H (98-107) mmol/L Calcium 8.3 L (8.4-10.2) mg/dL Assessment and Plan (1) Diverticulitis Narrative/Plan: 63-year-old female with colitis/diverticulitis - Nausea and emesis have improved, advance patient to clear liquid diet - Continue antibiotics. Patient is currently on Levaquin and Flagyl - Continue antiemetics as necessary - Protonix - I will continue to follow and make recommendations throughout the patient's admission. Current Visit: Yes Status: Acute Code(s): K57.92 - DVTRCLI OF INTEST, PART UNSP, W/O PERF OR ABSCESS W/O BLEED SNOMED Code(s): 815792319
--- NOTE | 2018-12-18 20:57 | PN ---
PROGRESS NOTE DATE OF SERVICE: 12/18/2018 This 63-year-old woman who was admitted with abdominal pain, nausea, vomiting and possible acute sigmoid diverticulitis is being closely monitored. The patient is on broad-spectrum IV antibiotics. Surgery is following. No chest pain. No palpitations. On exam, alert and oriented x3. Pulse 62, blood pressure 94/54, respiration 16, temperature 98.1, pulse ox 97% on room air. Blood pressure improved to 122/73. HEENT: Conjunctivae normal. NECK: No jugular venous distention. CARDIOVASCULAR SYSTEM: S1, S2 muffled. RESPIRATORY SYSTEM: Breath sounds diminished at the bases. A few scattered rhonchi. No crackles. ABDOMEN: Soft. Mild diffuse tenderness on the left side of abdomen. No guarding. No rigidity. NERVOUS SYSTEM: No focal deficit. LABS: WBC 4.8, hemoglobin 11.8. Sodium 143, potassium 3.5. ASSESSMENT: 1. Abdominal pain, nausea, vomiting, possible acute sigmoid diverticulitis or colitis. 2. History of hyperlipidemia. 3. History of degenerative joint disease. 4. History of Isabell-Ma virus. 5. History of osteoporosis. 6. History of right knee surgery. 7. History of colonoscopy. 8. History of anxiety. 9. Remote history of nicotine dependence. 10.FULL CODE. RECOMMENDATIONS AND DISCUSSION: I recommend to continue current medications, continue with the monitoring, symptomatic treatment. Otherwise at this time we will continue the antibiotics, closely follow with Surgery. Guarded prognosis. Further recommendations to follow. MMODL / IJN: [id number] /
[2018-12-19] MEDS: KETOROLAC 30 MG/ML 1 ML VIAL IVP PRN (06:32)
[2018-12-19] MEDS: PANTOPRAZOLE 40 MG/10 ML VIAL IVP SCH ×2 (08:30→21:35)
[2018-12-19] MEDS: CARISOPRODOL 350 MG TAB PO SCH ×3 (08:30→21:35)
[2018-12-19] MEDS: LORazepam 0.5 MG TAB PO SCH ×3 (08:30→21:35)
[2018-12-19] MEDS: LEVOFLOXACIN 750MG-D5W PMX 750 MG in DEXTROSE/WATER 1 150ML.BAG IVPB SCH (09:00)
[2018-12-19] MEDS: metroNIDAZOLE-NS PMX 500 MG in SALINE 1 100ML.BAG IVPB SCH ×2 (09:37→18:02)
--- NOTE | 2018-12-19 11:14 | P.PN ---
Subjective Progress Note Date: 12/19/18 Patient seen and examined at bedside. Tolerating clear liquid diet yesterday. States that she has a low appetite. Denies any nausea or vomiting. States abdominal pain is improving. Objective - Vital Signs Vital signs: Vital Signs Temp 97.4 F L 12/19/18 08:20 Pulse 72 12/19/18 08:20 Resp 16 12/19/18 08:20 BP 134/82 12/19/18 08:20 Pulse Ox 96 12/19/18 08:20 Intake & Output 12/18/18 12/19/18 12/19/18 18:59 06:59 18:59 Intake Total 60 Output Total 200 Balance 60 -200 Weight 90.718 kg Intake: Oral 60 Output: Urine 200 Other: Voiding Method Toilet Toilet Toilet # Voids 1 1 - Constitutional General appearance: Present: cooperative, no acute distress - EENT Eyes: Present: PERRLA - Gastrointestinal Gastrointestinal Comment(s): Soft, nontender, nondistended, no rebound, no guarding - Psychiatric Psychiatric: Present: A&O x's 3 - Labs CBC & Chem 7: 12/18/18 08:06 12/18/18 08:06 Assessment and Plan (1) Diverticulitis Narrative/Plan: 63-year-old female with colitis/diverticulitis - Nausea and emesis have improved, advance patient to soft diet - Continue antibiotics. Patient is currently on Levaquin and Flagyl - Continue antiemetics as necessary - Protonix - Patient will require colonoscopy as an outpatient in approximately 6-8 weeks. - I will continue to follow and make recommendations throughout the patient's admission. Current Visit: Yes Status: Acute Code(s): K57.92 - DVTRCLI OF INTEST, PART UNSP, W/O PERF OR ABSCESS W/O BLEED SNOMED Code(s): 312362488
[2018-12-19 11:52] LABS: Anion Gap 3 mmol/L; Blood Urea Nitrogen 5 mg/dL (7-17); Calcium 8.7 mg/dL (8.4-10.2); Carbon Dioxide 30 mmol/L (22-30); Chloride 111 mmol/L (98-107); Glucose 79 mg/dL (74-99); Potassium 3.5 mmol/L (3.5-5.1); Sodium 144 mmol/L (137-145)
[2018-12-19 11:58] LABS: Basophils % (A) 0 %; Eosinophils # (A) 0.2 k/uL (0-0.7); Eosinophils % (A) 5 %; HCT 35.9 % (34.0-46.0); HGB 12.3 gm/dL (11.4-16.0); Lymphocytes # (A) 0.9 k/uL (1.0-4.8); Lymphocytes % (A) 22 %; MCHC 34.2 g/dL (31.0-37.0); MCV 90.8 fL (80.0-100.0); Mean Platelet Volume 7.1; Monocytes # (A) 0.3 k/uL (0-1.0); Monocytes % (A) 8 %; Neutrophils # (A) 2.6 k/uL (1.3-7.7); Neutrophils % (A) 62 %; Platelet Count 262 k/uL (150-450); RBC 3.95 m/uL (3.80-5.40); RDW 14.8 % (11.5-15.5); WBC 4.1 k/uL (3.8-10.6)
[2018-12-19] MEDS: ONDANSETRON 8 MG in SODIUM CHLORIDE 0.9% 50 ML IVPB PRN (15:56)
--- NOTE | 2018-12-19 17:13 | PN ---
PROGRESS NOTE DATE OF SERVICE: 12/19/2018 This 63-year-old woman admitted with abdominal pain, nausea and vomiting also had acute sigmoid diverticulitis and colitis. Dr. Easton is following the patient closely. The diet is being continued otherwise. Dr. Easton thinks the patient might need outpatient colonoscopy. No chest pain. No palpitations. No fever. Patient still has some diffuse abdominal discomfort. On exam, alert and oriented x3. Pulse 72, blood pressure 135/82, respirations 16, temperature 97.4, pulse ox 96% on room air. HEENT: Conjunctivae normal. NECK: No jugular venous distention. CARDIOVASCULAR SYSTEM: S1, S2 muffled. RESPIRATORY SYSTEM: Breath sounds diminished at the bases. A few scattered rhonchi and crackles. ABDOMEN: Soft. Mild diffuse discomfort. No guarding. No mass palpable. LEGS: No edema. No swelling. NERVOUS SYSTEM: No focal deficit. LABS: WBC 4.1. Sodium 144, potassium 3.5. ASSESSMENT: 1. Abdominal pain, nausea, vomiting; possible acute sigmoid diverticulitis or colitis. 2. History of hyperlipidemia. 3. History of degenerative joint disease. 4. History of Isabell-Ma virus. 5. History of osteoporosis. 6. History of right knee surgery. 7. History of colonoscopy. 8. History of anxiety. 9. Remote history of nicotine dependence. 10.FULL CODE. RECOMMENDATIONS AND DISCUSSION: I recommend to continue current medical management, continue with the monitoring, symptomatic treatment. Otherwise at this time I recommend advancing diet per Surgery to a low-fiber soft diet. Continue to monitor. Further recommendations to follow. MMODL / IJN: [id number] /
[2018-12-19] MEDS: DEXTROSE 5%-0.9% NACL 1,000 ML IV SCH ×2 (20:14→21:35)
[2018-12-20] MEDS: KETOROLAC 30 MG/ML 1 ML VIAL IVP PRN (00:58)
[2018-12-20] MEDS: metroNIDAZOLE-NS PMX 500 MG in SALINE 1 100ML.BAG IVPB SCH ×2 (00:59→07:50)
[2018-12-20] MEDS: PANTOPRAZOLE 40 MG/10 ML VIAL IVP SCH (07:49)
[2018-12-20] MEDS: LORazepam 0.5 MG TAB PO SCH (07:50)
[2018-12-20] MEDS: CARISOPRODOL 350 MG TAB PO SCH (07:50)
--- NOTE | 2018-12-20 09:09 | P.PN ---
Subjective Progress Note Date: 12/20/18 Patient seen and examined at bedside. States she now has some epigastric pain that seems to be relieved with Protonix. States she is only having an appetite for Jell-O and broth. She continues to have flatus but no bowel movement. Objective - Vital Signs Vital signs: Vital Signs Temp 97.5 F L 12/20/18 00:53 Pulse 64 12/20/18 00:53 Resp 18 12/20/18 00:53 BP 133/80 12/20/18 00:53 Pulse Ox 94 L 12/20/18 00:53 Intake & Output 12/19/18 12/20/18 12/20/18 18:59 06:59 18:59 Intake Total 220 Balance 220 Intake: Oral 220 Other: Voiding Method Toilet # Voids 2 1 # Bowel Movements 1 - Constitutional General appearance: Present: cooperative, no acute distress - EENT Eyes: Present: PERRLA - Respiratory Details: No difficulty with respiration - Gastrointestinal Gastrointestinal Comment(s): Soft, nontender, nondistended, no rebound, no guarding - Psychiatric Psychiatric: Present: A&O x's 3 - Labs CBC & Chem 7: 12/19/18 10:44 12/19/18 10:44 Labs: Abnormal Lab Results - Last 24 Hours (Table) 12/19/18 12/19/18 Range/Units 10:44 10:44 Lymphocytes # 0.9 L (1.0-4.8) k/uL Chloride 111 H (98-107) mmol/L BUN 5 L (7-17) mg/dL Assessment and Plan (1) Diverticulitis Narrative/Plan: 63-year-old female with colitis/diverticulitis - Patient appears to be improving. I did recommend a bland diet as tolerated - Patient is surgically stable for discharge. I would recommend discharge on antibiotics and Protonix. - Continue antiemetics as necessary - Protonix - Patient will require upper endoscopy and colonoscopy as an outpatient in approximately 6-8 weeks. - I will continue to follow and make recommendations throughout the patient's admission. Current Visit: Yes Status: Acute Code(s): K57.92 - DVTRCLI OF INTEST, PART UNSP, W/O PERF OR ABSCESS W/O BLEED SNOMED Code(s): 429855394
[2018-12-20 09:35] VITALS: BP 121/81; PULSE 65; RESP 16; TEMP 98
[2018-12-20] MEDS: LEVOFLOXACIN 750MG-D5W PMX 750 MG in DEXTROSE/WATER 1 150ML.BAG IVPB SCH (10:20)
[2018-12-20 11:23] LABS: Basophils % (A) 1 %; Eosinophils # (A) 0.2 k/uL (0-0.7); Eosinophils % (A) 4 %; HCT 36.6 % (34.0-46.0); HGB 12.3 gm/dL (11.4-16.0); Lymphocytes # (A) 1.2 k/uL (1.0-4.8); Lymphocytes % (A) 26 %; MCH 30.4 pg (25.0-35.0); MCHC 33.6 g/dL (31.0-37.0); MCV 90.7 fL (80.0-100.0); Monocytes # (A) 0.3 k/uL (0-1.0); Monocytes % (A) 6 %; Neutrophils # (A) 2.8 k/uL (1.3-7.7); Neutrophils % (A) 62 %; Platelet Count 247 k/uL (150-450); RBC 4.03 m/uL (3.80-5.40); RDW 15.1 % (11.5-15.5); WBC 4.6 k/uL (3.8-10.6)
[2018-12-20 11:31] LABS: Anion Gap 5 mmol/L; Blood Urea Nitrogen 5 mg/dL (7-17); Carbon Dioxide 30 mmol/L (22-30); Chloride 108 mmol/L (98-107); Glucose 104 mg/dL (74-99); Potassium 3.4 mmol/L (3.5-5.1); Sodium 143 mmol/L (137-145)
[2018-12-20] MEDS ORDERED: POTASSIUM CHLORIDE ER 20 MEQ TAB.ER PO STA (11:33)
--- NOTE | 2018-12-21 00:11 | DS ---
DISCHARGE SUMMARY DATE OF SERVICE: 12/20/2018. FINAL DIAGNOSES: 1. Abdominal pain, nausea, vomiting, possible acute sigmoid diverticulitis and colitis. 2. History of hyperlipidemia. 3. History of degenerative joint disease. 5. History osteoporosis. 6. History of right knee surgery. 7. History of colonoscopy. 8. History of anxiety. 9. Remote history of nicotine dependence. 10.FULL CODE. DISCHARGE DISPOSITION: Patient will be discharged in stable condition with guarded prognosis. Discharge cleared by Surgery. HISTORY OF PRESENT ILLNESS: This 63-year-old woman with a past medical of multiple medical problems being followed by Dr. Camarillo in the outpatient setting, was admitted with abdominal pain and as well as features of sigmoid diverticulitis. Patient treated with broad-spectrum IV antibiotics with Dr. Easton. Saw the patient during hospitalization, recommended outpatient followup. PHYSICAL EXAMINATION: On exam, vital signs stable. Cardiovascular. S1, S2. Abdomen: Soft. Central nervous system: No focal deficits. SKIN: No discharge. DISCHARGE INSTRUCTIONS: 1. Discharge diet is cardiac diet. 2. Activity limited until follow up. 3. Follow up with Dr. Camarillo in 2-3 days. 4. Follow up with Dr. Easton as recommended. DISCHARGE MEDICATIONS ARE: 1. Ativan 0.5 mg p.o. t.i.d. 2. Celebrex 200 mg p.o. b.i.d. 3. Compazine 20 mg b.i.d. p.r.n. 4. Soma 350 mg p.o. t.i.d. 5. Tylenol 1000 mg p.o. b.i.d. p.r.n. 6. Flagyl 500 mg p.o. t.i.d. for 5 days. 7. Levaquin 400 mg p.o. daily for 5 days. 8. Protonix 40 mg p.o. daily. 9. Zofran 4 mg q.8h p.r.n. MMODL / IJN: [id number] / MTDD
== END 2018-12-20 14:27 | disposition home or self-care (01) | DRG 392 ==
LOC: EC 06:06 → 6PED 09:55
PROVIDERS: ADMIT Hospitalist; ATTEND Hospitalist
DX: K57.32 Diverticulitis of large intestine without perforation or abscess without bleeding (principal); K52.9 Noninfective gastroenteritis and colitis, unspecified; E78.5 Hyperlipidemia, unspecified; H40.9 Unspecified glaucoma; F41.9 Anxiety disorder, unspecified; M81.0 Age-related osteoporosis without current pathological fracture; M19.90 Unspecified osteoarthritis, unspecified site; Z90.710 Acquired absence of both cervix and uterus; Z87.891 Personal history of nicotine dependence; Z79.899 Other long term (current) drug therapy; Z87.440 Personal history of urinary (tract) infections; Z80.0 Family history of malignant neoplasm of digestive organs; Z80.1 Family history of malignant neoplasm of trachea, bronchus and lung
CPT/HCPCS: 36415; 74177; 80048; 80053; 81003; 82150; 83690; 84484; 85025; 87324; 93005; 96361; 96365; 96375; 99285

== ENCOUNTER → 2018-12-23 | Outpatient (CLI) | payer BC ==
[2018-12-23 12:04] LABS: Basophils % (A) 1 %; Eosinophils # (A) 0.1 k/uL (0-0.7); Eosinophils % (A) 1 %; HCT 40.9 % (34.0-46.0); HGB 13.5 gm/dL (11.4-16.0); Lymphocytes # (A) 2.2 k/uL (1.0-4.8); Lymphocytes % (A) 28 %; MCH 29.4 pg (25.0-35.0); MCHC 32.9 g/dL (31.0-37.0); MCV 89.4 fL (80.0-100.0); Mean Platelet Volume 6.2; Monocytes # (A) 0.5 k/uL (0-1.0); Monocytes % (A) 6 %; Neutrophils # (A) 4.9 k/uL (1.3-7.7); Neutrophils % (A) 61 %; Platelet Count 253 k/uL (150-450); RBC 4.58 m/uL (3.80-5.40); RDW 13.9 % (11.5-15.5)
[2018-12-23 12:19] LABS: Anion Gap 8 mmol/L; Blood Urea Nitrogen 11 mg/dL (7-17); Calcium 9.8 mg/dL (8.4-10.2); Carbon Dioxide 28 mmol/L (22-30); Chloride 101 mmol/L (98-107); Glucose 84 mg/dL (74-99); Potassium 4.2 mmol/L (3.5-5.1); Sodium 137 mmol/L (137-145)
== END ==
LOC: LABWHC1 11:11
PROVIDERS: ATTEND Hospitalist
DX: D64.9 Anemia, unspecified (principal)
CPT/HCPCS: 36415; 80048; 85025

== ENCOUNTER 2021-01-27 21:36 | Emergency (ER) | payer BC ==
[2021-01-27 22:58] VITALS: BP 164/87; PULSE 83; RESP 18; TEMP 97.3
[2021-01-27] MEDS ORDERED: ACETAMINOPHEN TAB 325 MG TAB PO STA (23:12)
[2021-01-27] MEDS ORDERED: traMADol 50 MG TAB PO STA (23:12)
[2021-01-27] MEDS ORDERED: traMADol 50 MG STARTER PACK 3 TAB BTL PO STA (23:12)
--- NOTE | 2021-01-27 23:46 | XR ---
EXAMINATION TYPE: XR ankle complete RT DATE OF EXAM: 01/27/2021 COMPARISON: NONE HISTORY: Fall. Pain. TECHNIQUE: 3 views FINDINGS: There is plantar calcaneal spurring. There is transverse fracture across the base of the fi fth metatarsal. There is no dislocation. Ankle mortise is anatomic. IMPRESSION: Nondisplaced fifth metatarsal fracture.
--- NOTE | 2021-01-27 23:47 | XR ---
EXAMINATION TYPE: XR foot complete RT DATE OF EXAM: 01/27/2021 COMPARISON: NONE HISTORY: Fall. Pain. TECHNIQUE: 3 views FINDINGS: There is nondisplaced transverse fracture of the proximal shaft of the fifth metatarsal. Th ere is no dislocation. The toes are intact. There is plantar calcaneal spurring. IMPRESSION: Nondisplaced acute fifth metatarsal fracture.
--- NOTE | 2021-01-27 23:48 | XR ---
EXAMINATION TYPE: XR lumbar spine 2 or 3V DATE OF EXAM: 01/27/2021 COMPARISON: NONE HISTORY: Pain TECHNIQUE: 3 views FINDINGS: Lumbar vertebra have normal alignment. Posterior elements are intact. There is mild narrowi ng of the L3-4 and L4-5 disc spaces. There is no compression fracture. Sacroiliac joints are intact. IMPRESSION: Mild multilevel spondylotic changes. No fracture.
--- NOTE | 2021-01-27 23:50 | XR ---
EXAMINATION TYPE: XR knee complete RT DATE OF EXAM: 01/27/2021 COMPARISON: NONE HISTORY: Knee pain TECHNIQUE: 3 views FINDINGS: There is spurring of the medial femoral and tibial condyles. I see no fracture nor dislocat ion. There is no sign of joint effusion. There is mild spurring of the patella. IMPRESSION: Osteoarthritis. No fracture seen.
--- NOTE | 2021-01-28 00:32 | ED ---
Lower Extremity Injury HPI - General Chief Complaint: Extremity Injury, Lower Stated Complaint: R foot injury Time Seen by Provider: 01/27/21 23:01 Source: patient Mode of arrival: ambulatory Limitations: no limitations - Related Data Home Medications Medication Instructions Recorded Confirmed Acetaminophen Tab [Tylenol] 1,000 mg PO BID PRN 08/28/16 12/17/18 Celecoxib [CeleBREX] 200 mg PO BID 08/28/16 12/17/18 LORazepam [Ativan] 0.5 mg PO TID 08/28/16 12/17/18 Prochlorperazine [Compazine] 20 mg PO BID PRN 08/28/16 12/17/18 carisoprodoL [Soma] 350 mg PO TID 08/28/16 12/17/18 Previous Rx's Medication Instructions Recorded Ondansetron Odt [Zofran ODT] 4 mg PO Q8HR PRN #30 tab 09/26/17 Levofloxacin [Levaquin] 500 mg PO DAILY 5 Days #5 tab 12/20/18 Pantoprazole Sodium [Protonix] 40 mg PO DAILY #15 tablet. 12/20/18 metroNIDAZOLE [Flagyl] 500 mg PO TID #15 tab 12/20/18 Allergies Allergy/AdvReac Type Severity Reaction Status Date / Time cephalexin AdvReac Nausea & Verified 01/27/21 22:58 Vomiting ciprofloxacin AdvReac Nausea & Verified 01/27/21 22:58 Vomiting codeine AdvReac Unknown Verified 01/27/21 22:58 egg AdvReac Nausea & Verified 01/27/21 22:58 Vomiting & Diarrhea Penicillins AdvReac Unknown Verified 01/27/21 22:58 Childhood Review of Systems ROS Statement: Those systems with pertinent positive or pertinent negative responses have been documented in the HPI. ROS Other: All systems not noted in ROS Statement are negative. Past Medical History Past Medical History: Eye Disorder, Hyperlipidemia, Neurologic Disorder, Osteoarthritis (OA) Additional Past Medical History / Comment(s): CORNELIO TREJO. OSTEOPOROSIS. GLAUCOMA. HYPOGLYCEMIA History of Any Multi-Drug Resistant Organisms: None Reported Past Surgical History: Hysterectomy, Orthopedic Surgery Additional Past Surgical History / Comment(s): COLONOSCOPY. RT SHOULDER SX WITH MANIPULATIONS. RT KNEE SCOPE WITH INJECTIONS. POLYPS REMOVED FROM THROAT Past Anesthesia/Blood Transfusion Reactions: Motion Sickness, Postoperative Nausea & Vomiting (PONV) Past Psychological History: Anxiety Smoking Status: Never smoker Past Alcohol Use History: None Reported Past Drug Use History: None Reported - Past Family History Father Family Medical History: Cancer Additional Family Medical History / Comment(s): LUNG General Exam Limitations: no limitations Course Vital Signs 01/27/21 22:52 Temperature 97.3 F L Pulse Rate 83 Respiratory 18 Rate Blood Pressure 164/87 O2 Sat by Pulse 100 Oximetry Disposition Clinical Impression: Foot fracture, right, Fracture of fifth metatarsal bone Disposition: HOME SELF-CARE Condition: Good Instructions (If sedation given, give patient instructions): Foot Fracture in Adults (ED) Is patient prescribed a controlled substance at d/c from ED?: No Referrals: Juan F Peoples DO [Doctor of Osteopathic Medicine] - 1-2 days
== END 2021-01-28 00:59 | disposition home or self-care (01) ==
LOC: EC 21:36
DX: S92.354A Nondisplaced fracture of fifth metatarsal bone, right foot, initial encounter for closed fracture (principal); M47.816 Spondylosis without myelopathy or radiculopathy, lumbar region; M17.11 Unilateral primary osteoarthritis, right knee; E78.5 Hyperlipidemia, unspecified; M19.90 Unspecified osteoarthritis, unspecified site; M81.0 Age-related osteoporosis without current pathological fracture; X58.XXXA Exposure to other specified factors, initial encounter
CPT/HCPCS: 72100; 99283

== ENCOUNTER → 2021-02-10 | Outpatient (CLI) | payer BC ==
--- NOTE | 2021-02-10 17:14 | MR ---
EXAMINATION TYPE: MR lumbar spine wo con DATE OF EXAM: 02/10/2021 COMPARISON: HISTORY: Has had 3 falls within 8 weeks, low back pain into left and right buttocks since 2009. TECHNIQUE: Multiplanar, multisequence images of the lumbar spine were acquired. L1-L2: Posterior disc bulge causes minimal anterior mass effect on the thecal sac. There is some face t arthropathy change. No significant foraminal encroachment. L2-L3: Posterior disc bulge causes mild anterior mass effect on the thecal sac. There is facet arthro kaylee change. No significant foraminal encroachment. L3-L4: Posterior disc bulge causes mild anterior mass effect on the thecal sac. There is facet arthro kaylee change causing posterior lateral mass effect on the thecal sac. Circumferential extension endpl ate disc complex encroaches minimally on the inferior margins of the foramina. L4-L5: Differential posterior disc bulge causes mild anterior mass effect on the thecal sac. Facet ar thropathy with hypertrophy ligamentum flavum causes posterior lateral aspect of the thecal sac, circu mferential extension endplate disc complex encroaches somewhat on the foramina. L5-S1: There is facet arthropathy change, circumferential extension endplate disc complex encroaches somewhat on the inferior aspect of the foramina, there is mild anterior mass effect on the thecal sac , no significant spinal stenosis. Lumbar segments are intact. No paraspinal masses are identified. Conus medullaris has a normal appe arance. Lumbar vertebral bodies show preserved height and alignment. There is multilevel spondylosis with endplate discogenic marrow signal change. Loss of disc height signal at intervertebral levels co nsistent with disc desiccation and degenerative disc disease. Suspect parapelvic cysts present within the left kidney. IMPRESSION: Degenerative disc disease and multilevel facet arthropathy.
== END | disposition home or self-care (01) ==
LOC: RADMRIMAIN 15:43
PROVIDERS: ATTEND Physician Assistant
DX: M51.36 Other intervertebral disc degeneration, lumbar region (principal); M47.816 Spondylosis without myelopathy or radiculopathy, lumbar region
CPT/HCPCS: 72148

== ENCOUNTER → 2021-05-11 | Outpatient (CLI) | payer BC ==
--- NOTE | 2021-05-12 11:07 | MM ---
Reason for exam: screening (asymptomatic). Last mammogram was performed 2 years and 7 months ago. History: Patient had first child at age 32. Family history of breast cancer in maternal aunt at age 60. Physical Findings: A clinical breast exam by your physician is recommended on an annual basis and results should be correlated with mammographic findings. MG 3D Screening Mammo W/Cad Bilateral CC and MLO view(s) were taken. Prior study comparison: October 15, 2018, bilateral MG 3d screening mammo w/cad. February 21, 2017, mammogram, performed at [facility]. There are scattered fibroglandular densities. There is chronic nodularity bilaterally. There is no discrete abnormality. ASSESSMENT: Benign, BI-RAD 2 RECOMMENDATION: Routine screening mammogram of both breasts in 1 year.
== END | disposition home or self-care (01) ==
LOC: RADMAMWWP 10:59
PROVIDERS: ATTEND Family Medicine
DX: Z12.31 Encounter for screening mammogram for malignant neoplasm of breast (principal); Z80.3 Family history of malignant neoplasm of breast
CPT/HCPCS: 77063; 77067

== ENCOUNTER → 2021-06-22 | Outpatient (CLI) | payer BC ==
--- NOTE | 2021-06-22 13:47 | CT ---
EXAMINATION TYPE: CT iac wo con DATE OF EXAM: 06/22/2021 COMPARISON: None HISTORY: Unspecified mastoiditis. Bleeding from left ear. CT DLP: 150mGycm Automated exposure control for dose reduction was used. FINDINGS: The external auditory canals are patent bilaterally, linear focus noted along the external auditory canal could represent some cerumen just lateral to the tympanic membrane on the left. Masto id air cells show no evidence of abnormal opacification on the right, on the left there is inflammato ry change present, opacified mastoid air cells. The middle ear ossicles are symmetric and unremarkab le. There is no evidence of suspicious surrounding soft tissue density to suggest cholesteatoma. Th e scutum is preserved bilaterally. The cochlea and the semicircular canals are symmetric and unremar kable. Vestibular aqueduct and internal carotid canal appear unremarkable. Temporomandibular joints are maintained bilaterally. Some inflammatory changes present at the bilateral maxillary sinus, sphenoid sinus, difficult to excl ude polyp disease. IMPRESSION: Correlate for mastoiditis, sinus disease
== END | disposition home or self-care (01) ==
LOC: RADCTMAIN 12:06
PROVIDERS: ATTEND Otolaryngology
DX: H92.22 Otorrhagia, left ear (principal); J32.8 Other chronic sinusitis
CPT/HCPCS: 70480

== ENCOUNTER → 2021-06-22 | Outpatient (CLI) | payer BC ==
[2021-06-22 19:00] LABS: Basophils # (A) 0.04 X 10*3/uL (0.00-0.10); Basophils % (A) 0.6 %; Eosinophils # (A) 0.17 X 10*3/uL (0.04-0.35); Eosinophils % (A) 2.5 %; HCT 40.9 % (37.2-46.3); HGB 13.2 g/dL (12.0-15.0); Lymphocytes # (A) 1.54 X 10*3/uL (0.90-5.00); Lymphocytes % (A) 22.2 %; MCH 30.6 pg (27.0-32.0); MCHC 32.3 g/dL (32.0-37.0); MCV 94.9 fL (80.0-97.0); Mean Platelet Volume 10.2 fL (9.5-12.2); Monocytes % (A) 7.2 %; Neutrophils # (A) 4.66 X 10*3/uL (1.80-7.70); Neutrophils % (A) 67.2 %; Platelet Count 264 X 10*3/uL (140-440); RBC 4.31 X 10*6/uL (4.10-5.20); RDW 13.6 % (11.5-14.5); WBC 6.93 X 10*3/uL (4.50-10.00)
== END | disposition home or self-care (01) ==
LOC: LABWHC1 09:50
PROVIDERS: ATTEND Otolaryngology
DX: H66.90 Otitis media, unspecified, unspecified ear (principal); R53.83 Other fatigue
CPT/HCPCS: 36415; 82947; 83036; 85025

== ENCOUNTER → 2023-07-04 | Outpatient (CLI) | payer BC ==
[2023-07-04 14:53] VITALS: BP 125/61; PULSE 81; RESP 16
--- NOTE | 2023-07-04 16:08 | P.PAINPG ---
PQRS Measure Charge Sheet Comment: HISTORY OF PRESENT ILLNESS: A 68 yr old female w daughter at [facility] as a referral from Dr Roberson presents today w severe and chronic CRPS secondary to R shoulder and R knee surgery for evaluation. Pt states pain level is provoked at 8/10 in intensity, constant, localized in the R shoulder and R knee, stabbing in character without shooting pain. Pain is provoked by weight bearing activity. Pain is alleviated by medications (Soma 350mg #90, Tyl, Celebrex), topical, PT in 2021, massage therapy monthly x 1 yr which she is currently in and her next visit is this week, repositioning and rest. Daughter at side stated she has another appt and she is in a hurry. PMH: OA, Galucoma, Hyperlipidemia, Isabell Ma, OP, Anxiety PSH: R Shoulder Surgery, R Knee Arthroscopy, Colonoscopy/ EGD, Hysterectomy SH: Negative x3. Son suddenly at age 37. FH: Fa- Lung Ca All: See list Meds: See list REVIEW OF ORGAN SYSTEMS: CONSTITUTIONAL: No fevers or chills. No recent weight loss. NEUROLOGICAL: + numbness and tingling along the distal extremities. No seizure disorders or headaches. MUSCULOSKELETAL: + pain PSYCHIATRIC: Denies current depression or suicidal thoughts. Physical Examinations : Constitutional : Cooperative , not in acute distress . Neurologic : Cranial nerve II to XII intact. No focal neurological deficits. Psychiatric : alert & oriented x 3. Matching mood & appropriate affect. Judgment & insight intact. Musculoskeletal : Cervical Spine +R shoulder well - healed incisional scars, GH/AC joint line TTP Motor strength in the deltoid and biceps: Normal right side. Normal Left side Motor strength biceps and the wrist extensors: Normal right side . Normal left side Motor strength in the triceps muscle: Normal right side. Normal left side Deep tendon reflexes: Normal at the biceps. Normal at Brachioradialis. Normal at triceps Vertebral body tenderness to deep palpation over Cervical facet loading test: positive bilaterally Spurling test: positive bilaterally Neck distraction test: positive bilaterally Eltha sign: positive bilaterally Lumbar spine +R well- healed incisional scars, nena patellar edema, diffuse TTP Motor strength lower extremities ,thigh and legs 5/5 Right side , 5/5 Left side Deep tendon reflexes : Normal Knee Jerk. Normal Ankle Jerk Vertebral body tenderness over Fragoso Test positive Lumbar facet Loading Test: positive Right / positive Left Range of motion of the lumbar spine Flexion 30 degrees, extension 10 degrees Straight Leg Raise test: Left/ Right positive at degree Shaq test: positive right / positive left. Severe tenderness over the Sacroiliac joint on the Right / Left sides Gaenslen test: positive bilaterally Seated flexion test: positive bilaterally. Sacral spine : Severe tenderness over the Sacroiliac joint: right side / left side Range of motion: Flexion of the lumbar spine <60 degrees Range of motion: Extension of the lumbar spine <20 degrees Gaenslen's Test positive Edis's Test positive Shaq test: positive right side / left side Thigh Thrust Test Sacral Thrust Test Imaging: None on file Assessment/ Plan : CRPS L knee s/p R shoulder/ R knee surgery Recommendation of medication management Soma 350mg #90 w 1 RF. Use, side effects, adverse reactions and safe storage discussed. Notified will not prescribe narcotic pain medications and pt acknowledged she does not want "pain medications." All questions answered. I have spent greater than 30 minutes on patient care today. Dr Mccain was available by phone for the evaluation of this patient. The time was used to review the medical records including relevant urine studies and Prescription history (MAPs), review of the available imaging, evaluation and examination of the patient, coordination of care with the medical staff and if applicable referring physicians, as well as creation of the medical record PQRS Narrative: Smoking Status Never smoker Home Medications: Ambulatory Orders Acetaminophen Tab [Tylenol] 1,000 mg PO BID PRN 08/28/16 Celecoxib [CeleBREX] 200 mg PO BID 08/28/16 LORazepam [Ativan] 0.5 mg PO TID 08/28/16 Prochlorperazine [Compazine] 20 mg PO BID PRN 08/28/16 carisoprodoL [Soma] 350 mg PO TID 08/28/16 Ondansetron Odt [Zofran ODT] 4 mg PO Q8HR PRN #30 tab 09/26/17 Levofloxacin [Levaquin] 500 mg PO DAILY 5 Days #5 tab 12/20/18 Pantoprazole Sodium [Protonix] 40 mg PO DAILY #15 tablet. 12/20/18 metroNIDAZOLE [Flagyl] 500 mg PO TID #15 tab 12/20/18 carisoprodoL [Soma] 350 mg PO TID PRN 30 Days #90 tab 07/04/23 Controlled Substance Measures - Controlled Substance Measures Is patient prescribed a controlled substance at discharge?: Yes When asked, does pt state using other controlled substances?: No If prescribed controlled substance>3 days was MAPS reviewed?: Yes If Rx opioid, was Start Talking consent form obtained?: Yes Was information provided regarding opioid addiction?: Yes
== END ==
LOC: PNWHC3 13:25
PROVIDERS: ATTEND Specialist
DX: G90.59 Complex regional pain syndrome I of other specified site (principal); M19.90 Unspecified osteoarthritis, unspecified site; E78.5 Hyperlipidemia, unspecified; F41.9 Anxiety disorder, unspecified; H42 Glaucoma in diseases classified elsewhere; H40.9 Unspecified glaucoma; Z88.1 Allergy status to other antibiotic agents; Z88.5 Allergy status to narcotic agent; Z88.0 Allergy status to penicillin; Z91.012 Allergy to eggs; Z96.651 Presence of right artificial knee joint
CPT/HCPCS: 99211

== ENCOUNTER → 2023-08-29 | Outpatient (CLI) | payer BC ==
[2023-08-29 12:27] VITALS: BP 150/88; PULSE 73; RESP 15; TEMP 98.4
--- NOTE | 2023-08-29 14:10 | P.PAINPG ---
PQRS Measure Charge Sheet Comment: HISTORY OF PRESENT ILLNESS: A 68 yr old female presents today w severe and chronic CRPS secondary to R shoulder and R knee surgery for medication refills Pt states she has tried all of Baclofen, Robaxin and Flexeril but each was ineffective in treating spasms. She states that over the years, Soma was introduced to her medication regimen and has been the only medication that has helped her bear weight on her feet while having CRPS. Pt states pain level is provoked at 7/10 in intensity, constant, localized in the R shoulder and R knee, stabbing in character without shooting pain. Pain is provoked by weight bearing activity. Pain is alleviated by medications, topical, PT in 2021, massage therapy monthly x 1 yr which she is currently in and her next visit is this week, repositioning and rest. Pt last filled Soma 350mg #90 on 08/10/23. Interventional procedures include Medications include Soma 350mg #90, Celebrex, Tyl REVIEW OF ORGAN SYSTEMS: CONSTITUTIONAL: No fevers or chills. No recent weight loss. NEUROLOGICAL: + numbness and tingling along the distal extremities. No seizure disorders or headaches. MUSCULOSKELETAL: + pain PSYCHIATRIC: Denies current depression or suicidal thoughts. Physical Examinations : Constitutional : Cooperative , not in acute distress . Neurologic : Cranial nerve II to XII intact. No focal neurological deficits. Psychiatric : alert & oriented x 3. Matching mood & appropriate affect. Judgment & insight intact. Musculoskeletal : Cervical Spine +R shoulder well - healed incisional scars, GH/AC joint line TTP Motor strength in the deltoid and biceps: Normal right side. Normal Left side Motor strength biceps and the wrist extensors: Normal right side . Normal left side Motor strength in the triceps muscle: Normal right side. Normal left side Deep tendon reflexes: Normal at the biceps. Normal at Brachioradialis. Normal at triceps Vertebral body tenderness to deep palpation over Cervical facet loading test: positive bilaterally Spurling test: positive bilaterally Neck distraction test: positive bilaterally Letha sign: positive bilaterally Lumbar spine +R well- healed incisional scars, nena patellar edema, diffuse TTP Motor strength lower extremities ,thigh and legs 5/5 Right side , 5/5 Left side Deep tendon reflexes : Normal Knee Jerk. Normal Ankle Jerk Vertebral body tenderness over Fragoso Test positive Lumbar facet Loading Test: positive Right / positive Left Range of motion of the lumbar spine Flexion 30 degrees, extension 10 degrees Straight Leg Raise test: Left/ Right positive at degree Shaq test: positive right / positive left. Severe tenderness over the Sacroiliac joint on the Right / Left sides Gaenslen test: positive bilaterally Seated flexion test: positive bilaterally. Sacral spine : Severe tenderness over the Sacroiliac joint: right side / left side Range of motion: Flexion of the lumbar spine <60 degrees Range of motion: Extension of the lumbar spine <20 degrees Gaenslen's Test positive Deis's Test positive Shaq test: positive right side / left side Thigh Thrust Test Sacral Thrust Test Imaging: None on file Assessment/ Plan : CRPS L knee s/p R shoulder/ R knee surgery Recommendation of medication management Soma 350mg #90 w 1 RF. Use, side effects, adverse reactions and safe storage discussed. Notified will not prescribe narcotic pain medications and pt acknowledged she does not want "pain medications." All questions answered. I have spent greater than 30 minutes on patient care today. Dr Mccain was available by phone for the evaluation of this patient. The time was used to review the medical records including relevant urine studies and Prescription history (MAPs), review of the available imaging, evaluation and examination of the patient, coordination of care with the medical staff and if applicable referring physicians, as well as creation of the medical record PQRS Narrative: Smoking Status Never smoker Hx Alcohol Use (MH) No Home Medications: Ambulatory Orders Acetaminophen Tab [Tylenol] 1,000 mg PO BID PRN 08/28/16 Celecoxib [CeleBREX] 200 mg PO BID 08/28/16 LORazepam [Ativan] 0.5 mg PO TID 08/28/16 Prochlorperazine [Compazine] 20 mg PO BID PRN 08/28/16 Ondansetron Odt [Zofran ODT] 4 mg PO Q8HR PRN #30 tab 09/26/17 Levofloxacin [Levaquin] 500 mg PO DAILY 5 Days #5 tab 12/20/18 Pantoprazole Sodium [Protonix] 40 mg PO DAILY #15 tablet. 12/20/18 metroNIDAZOLE [Flagyl] 500 mg PO TID #15 tab 12/20/18 carisoprodoL [Soma] 350 mg PO TID 30 Days #90 tab 08/29/23 Controlled Substance Measures - Controlled Substance Measures Is patient prescribed a controlled substance at discharge?: Yes When asked, does pt state using other controlled substances?: Yes If prescribed controlled substance>3 days was MAPS reviewed?: Yes
== END ==
LOC: PNWHC3 10:34
PROVIDERS: ATTEND Specialist
DX: G90.512 Complex regional pain syndrome I of left upper limb (principal); Z51.81 Encounter for therapeutic drug level monitoring; Z98.890 Other specified postprocedural states; Z88.1 Allergy status to other antibiotic agents; Z88.5 Allergy status to narcotic agent; Z91.012 Allergy to eggs; Z88.0 Allergy status to penicillin
CPT/HCPCS: 80307; 99212

== ENCOUNTER → 2023-09-25 | Outpatient (CLI) | payer MEDICARE ==
--- NOTE | 2023-09-26 19:59 | MM ---
Reason for Exam: Screening (asymptomatic). Last mammogram was performed 2 year(s) and 4 month(s) ago. Patient History: Menarche at age 13. First Full-Term at age 32. Late child-bearing (after 31). Hysterectomy at age 36. Patient has history of breast feeding. Maternal aunt had breast cancer, age 60. Risk Values: Tammi 5 year model risk: 2.3%. NCI Lifetime model risk: 7.9%. Prior Study Comparison: 02/21/2017 Screening Mammogram, [facility]. 10/15/2018 Bilateral Screening Mammogram, [facility]. 05/11/2021 Bilateral Screening Mammogram, [facility]. Tissue Density: There are scattered fibroglandular densities. Findings: Analyzed By CAD. Chronic bilateral nodularity. There is no suspicious group of microcalcifications or new suspicious mass in either breast. Overall Assessment: Benign, BI-RAD 2 Management: Screening Mammogram of both breasts in 1 year. . Patient should continue monthly self-breast exams. A clinical breast exam by your physician is recommended on an annual basis. This exam should not preclude additional follow-up of suspicious palpable abnormalities. Note on Tammi scores and lifetime risk: 1. A Tammi score greater than 3% is considered moderate risk. If this is the case, consider specialist referral to assess eligibility for a risk reducing agent. 2. If overall lifetime risk for the development of breast cancer is 20% or higher, the patient may qualify for future screening with alternating mammogram and breast MRI. Electronically signed and approved by: Helen Castro M.D. Radiologist
== END | disposition home or self-care (01) ==
LOC: RADMAMWWP 14:20
PROVIDERS: ATTEND Family Medicine
DX: Z12.31 Encounter for screening mammogram for malignant neoplasm of breast (principal); Z80.3 Family history of malignant neoplasm of breast
CPT/HCPCS: 77063; 77067

== ENCOUNTER → 2023-10-24 | Outpatient (CLI) | payer MEDICARE ==
[2023-10-24 11:13] VITALS: BP 134/86; PULSE 86; RESP 16
--- NOTE | 2023-10-24 14:28 | P.PAINPG ---
PQRS Measure Charge Sheet Comment: HISTORY OF PRESENT ILLNESS: A 68 yr old female presents today w severe and chronic CRPS secondary to R shoulder and R knee surgery for medication refills. Pt states history of Baclofen, Robaxin and Flexeril usage was ineffective in treating spasms but Soma has been the only medication that has helped her bear weight on her feet while having CRPS. Pt states pain level is provoked at 7/10 in intensity, constant, localized in the R shoulder and R knee, stabbing in character without shooting pain. Pain is provoked by weight bearing activity. Pain is alleviated by medications, topical, PT in 2021, massage therapy monthly x 1 yr which she is currently in and her next visit is this week, repositioning and rest. New medication authorization form completed 10/24/23 and faxed Interventional procedures include Medications include Soma 350mg #90, Celebrex, Tyl REVIEW OF ORGAN SYSTEMS: CONSTITUTIONAL: No fevers or chills. No recent weight loss. NEUROLOGICAL: + numbness and tingling along the distal extremities. No seizure disorders or headaches. MUSCULOSKELETAL: + pain PSYCHIATRIC: Denies current depression or suicidal thoughts. Physical Examinations : Constitutional : Cooperative , not in acute distress . Neurologic : Cranial nerve II to XII intact. No focal neurological deficits. Psychiatric : alert & oriented x 3. Matching mood & appropriate affect. Judgment & insight intact. Musculoskeletal : Cervical Spine +R shoulder well - healed incisional scars, GH/AC joint line TTP Motor strength in the deltoid and biceps: Normal right side. Normal Left side Motor strength biceps and the wrist extensors: Normal right side . Normal left side Motor strength in the triceps muscle: Normal right side. Normal left side Deep tendon reflexes: Normal at the biceps. Normal at Brachioradialis. Normal at triceps Vertebral body tenderness to deep palpation over Cervical facet loading test: positive bilaterally Spurling test: positive bilaterally Neck distraction test: positive bilaterally Letha sign: positive bilaterally Lumbar spine +R well- healed incisional scars, nena patellar edema, diffuse TTP Motor strength lower extremities ,thigh and legs 5/5 Right side , 5/5 Left side Deep tendon reflexes : Normal Knee Jerk. Normal Ankle Jerk Vertebral body tenderness over Fragoso Test positive Lumbar facet Loading Test: positive Right / positive Left Range of motion of the lumbar spine Flexion 30 degrees, extension 10 degrees Straight Leg Raise test: Left/ Right positive at degree Shaq test: positive right / positive left. Severe tenderness over the Sacroiliac joint on the Right / Left sides Gaenslen test: positive bilaterally Seated flexion test: positive bilaterally. Sacral spine : Severe tenderness over the Sacroiliac joint: right side / left side Range of motion: Flexion of the lumbar spine <60 degrees Range of motion: Extension of the lum bar spine <20 degrees Gaenslen's Test positive Edis's Test positive Shaq test: positive right side / left side Thigh Thrust Test Sacral Thrust Test Imaging: None on file Assessment/ Plan : CRPS L knee s/p R shoulder/ R knee surgery Recommendation of medication management. Soma 350mg #90 w 1 RF. Use, side effects, adverse reactions and safe storage discussed. All questions answered. I have spent greater than 30 minutes on patient care today. Dr Mccain was available by phone for the evaluation of this patient. The time was used to review the medical records including relevant urine studies and Prescription history (MAPs), review of the available imaging, evaluation and examination of the patient, coordination of care with the medical staff and if applicable referring physicians, as well as creation of the medical record PQRS Narrative: Smoking Status Never smoker Hx Alcohol Use (MH) No Home Medications: Ambulatory Orders Acetaminophen Tab [Tylenol] 1,000 mg PO BID PRN 08/28/16 Celecoxib [CeleBREX] 200 mg PO BID 08/28/16 LORazepam [Ativan] 0.5 mg PO TID 08/28/16 Prochlorperazine [Compazine] 20 mg PO BID PRN 08/28/16 Ondansetron Odt [Zofran ODT] 4 mg PO Q8HR PRN #30 tab 09/26/17 Levofloxacin [Levaquin] 500 mg PO DAILY 5 Days #5 tab 12/20/18 Pantoprazole Sodium [Protonix] 40 mg PO DAILY #15 tablet. 12/20/18 metroNIDAZOLE [Flagyl] 500 mg PO TID #15 tab 12/20/18 carisoprodoL [Soma] 350 mg PO TID 30 Days #90 tab 10/24/23 Controlled Substance Measures - Controlled Substance Measures Is patient prescribed a controlled substance at discharge?: Yes When asked, does pt state using other controlled substances?: Yes If prescribed controlled substance>3 days was MAPS reviewed?: Yes
== END ==
LOC: PNWHC3 10:14
PROVIDERS: ATTEND Specialist
DX: G90.522 Complex regional pain syndrome I of left lower limb (principal); Z98.890 Other specified postprocedural states; Z88.1 Allergy status to other antibiotic agents; Z88.5 Allergy status to narcotic agent; Z91.012 Allergy to eggs; Z88.0 Allergy status to penicillin
CPT/HCPCS: 99211

== ENCOUNTER → 2023-12-19 | Outpatient (CLI) | payer MEDICARE ==
[2023-12-19 11:38] VITALS: BP 142/88; PULSE 82; RESP 16; TEMP 98.1
--- NOTE | 2023-12-19 13:48 | P.PAINPG ---
PQRS Measure Charge Sheet Comment: HISTORY OF PRESENT ILLNESS: A 68 yr old female presents today w severe and chronic CRPS secondary to R shoulder and R knee surgery for medication refills. Pt states history of Baclofen, Robaxin and Flexeril usage was ineffective in treating spasms but Soma has been the only medication that has helped her bear weight on her feet while having CRPS. Pt states pain level is provoked at 7/10 in intensity, constant, localized in the R shoulder and R knee, stabbing in character without shooting pain. Pain is provoked by weight bearing activity. Pain is alleviated by medications, topical, heat, PT in 2021, massage therapy monthly x 1 yr w her last visit yesterday, repositioning and rest. New med authorization form completed and faxed on 10/24/23. Interventional procedures include Medications include Soma 350mg #90, Celebrex, Tyl REVIEW OF ORGAN SYSTEMS: CONSTITUTIONAL: No fevers or chills. No recent weight loss. NEUROLOGICAL: + numbness and tingling along the distal extremities. No seizure disorders or headaches. MUSCULOSKELETAL: + pain PSYCHIATRIC: Denies current depression or suicidal thoughts. Physical Examinations : Constitutional : Cooperative , not in acute distress . Neurologic : Cranial nerve II to XII intact. No focal neurological deficits. Psychiatric : alert & oriented x 3. Matching mood & appropriate affect. Judgment & insight intact. Musculoskeletal : Cervical Spine +R shoulder well - healed incisional scars, GH/AC joint line TTP Motor strength in the deltoid and bicep s: Normal right side. Normal Left side Motor strength biceps and the wrist extensors: Normal right side . Normal left side Motor strength in the triceps muscle: Normal right side. Normal left side Deep tendon reflexes: Normal at the biceps. Normal at Brachioradialis. Normal at triceps Vertebral body tenderness to deep palpation over Cervical facet loading test: positive bilaterally Spurling test: positive bilaterally Neck distraction test: positive bilaterally Letha sign: positive bilaterally Lumbar spine +R well- healed incisional scars, nena patellar edema, diffuse TTP Motor strength lower extremities ,thigh and legs 5/5 Right side , 5/5 Left side Deep tendon reflexes : Normal Knee Jerk. Normal Ankle Jerk Vertebral body tenderness over Fragoso Test positive Lumbar facet Loading Test: positive Right / positive Left Range of motion of the lumbar spine Flexion 30 degrees, extension 10 degrees Straight Leg Raise test: Left/ Right positive at degree Shaq test: positive right / positive left. Severe tenderness over the Sacroiliac joint on the Right / Left sides Gaenslen test: positive bilaterally Seated flexion test: positive bilaterally. Sacral spine : Severe tenderness over the Sacroiliac joint: right side / left side Range of motion: Flexion of the lumbar spine <60 degrees Range of motion: Extension of the lumbar spine <20 degrees Gaenslen's Test positive Edis's Test positive Shaq test: positive right side / left side Thigh Thrust Test Sacral Thrust Test Imaging: None on file Assessment/ Plan : CRPS L knee s/p R shoulder/ R knee surgery Recommendation of medication management. Soma 350mg #90 w 1 RF. Use, side effects, adverse reactions and safe storage discussed. All questions answered. I have spent greater than 30 minutes on patient care today. Dr Mccain was available by phone for the evaluation of this patient. The time was used to review the medical records including relevant urine studies and Prescription history (MAPs), review of the available imaging, evaluation and examination of the patient, coordination of care with the medical staff and if applicable referring physicians, as well as creation of the medical record PQRS Narrative: Smoking Status Never smoker Hx Alcohol Use (MH) No Home Medications: Ambulatory Orders Acetaminophen Tab [Tylenol] 1,000 mg PO BID PRN 08/28/16 Celecoxib [CeleBREX] 200 mg PO BID 08/28/16 LORazepam [Ativan] 0.5 mg PO TID 08/28/16 Prochlorperazine [Compazine] 20 mg PO BID PRN 08/28/16 Ondansetron Odt [Zofran ODT] 4 mg PO Q8HR PRN #30 tab 09/26/17 Levofloxacin [Levaquin] 500 mg PO DAILY 5 Days #5 tab 12/20/18 Pantoprazole Sodium [Protonix] 40 mg PO DAILY #15 tablet. 12/20/18 metroNIDAZOLE [Flagyl] 500 mg PO TID #15 tab 12/20/18 carisoprodoL [Soma] 350 mg PO TID 30 Days #90 tab 12/19/23 Controlled Substance Measures - Controlled Substance Measures Is patient prescribed a controlled substance at discharge?: Yes When asked, does pt state using other controlled substances?: Yes If prescribed controlled substance>3 days was MAPS reviewed?: Yes
== END ==
LOC: PNWHC3 10:33
PROVIDERS: ATTEND Specialist
DX: G90.521 Complex regional pain syndrome I of right lower limb (principal); G90.511 Complex regional pain syndrome I of right upper limb; Z98.890 Other specified postprocedural states; Z88.1 Allergy status to other antibiotic agents; Z91.012 Allergy to eggs; Z88.0 Allergy status to penicillin; Z88.5 Allergy status to narcotic agent
CPT/HCPCS: 99211

== ENCOUNTER → 2024-02-27 | Outpatient (CLI) | payer MEDICARE ==
[2024-02-27 12:10] VITALS: BP 126/78; PULSE 71; RESP 16
--- NOTE | 2024-02-27 14:48 | P.PAINPG ---
PQRS Measure Charge Sheet Comment: HISTORY OF PRESENT ILLNESS: A 68 yr old female presents today w severe and chronic CRPS secondary to R shoulder and R knee surgery for medication refills. Pt states history of Baclofen, Robaxin and Flexeril usage was ineffective in treating spasms but Soma has been the only medication that has helped her bear weight on her feet while having CRPS. Pt states pain level is provoked at 7/10 in intensity, constant, localized in the R shoulder and R knee, stabbing in character without shooting pain. Pain is provoked by weight bearing activity. Pain is alleviated by medications, topical, heat, PT in 2021, massage therapy monthly x 1 yr w her last visit yesterday, repositioning and rest. New med authorization form completed and faxed on 10/24/23. Interventional procedures include Medications include Soma 350mg #90, Celebrex, Tyl REVIEW OF ORGAN SYSTEMS: CONSTITUTIONAL: No fevers or chills. No recent weight loss. NEUROLOGICAL: + numbness and tingling along the distal extremities. No seizure disorders or headaches. MUSCULOSKELETAL: + pain PSYCHIATRIC: Denies current depression or suicidal thoughts. Physical Examinations : Constitutional : Cooperative , not in acute distress . Neurologic : Cranial nerve II to XII intact. No focal neurological deficits. Psychiatric : alert & oriented x 3. Matching mood & appropriate affect. Judgment & insight intact. Musculoskeletal : Cervical Spine +R shoulder well - healed incisional scars, GH/AC joint line TTP Motor strength in the deltoid and bicep s: Normal right side. Normal Left side Motor strength biceps and the wrist extensors: Normal right side . Normal left side Motor strength in the triceps muscle: Normal right side. Normal left side Deep tendon reflexes: Normal at the biceps. Normal at Brachioradialis. Normal at triceps Vertebral body tenderness to deep palpation over Cervical facet loading test: positive bilaterally Spurling test: positive bilaterally Neck distraction test: positive bilaterally Letha sign: positive bilaterally Lumbar spine +R well- healed incisional scars, nena patellar edema, diffuse TTP Motor strength lower extremities ,thigh and legs 5/5 Right side , 5/5 Left side Deep tendon reflexes : Normal Knee Jerk. Normal Ankle Jerk Vertebral body tenderness over Fragoso Test positive Lumbar facet Loading Test: positive Right / positive Left Range of motion of the lumbar spine Flexion 30 degrees, extension 10 degrees Straight Leg Raise test: Left/ Right positive at degree Shaq test: positive right / positive left. Severe tenderness over the Sacroiliac joint on the Right / Left sides Gaenslen test: positive bilaterally Seated flexion test: positive bilaterally. Sacral spine : Severe tenderness over the Sacroiliac joint: right side / left side Range of motion: Flexion of the lumbar spine <60 degrees Range of motion: Extension of the lumbar spine <20 degrees Gaenslen's Test positive Edis's Test positive Shaq test: positive right side / left side Thigh Thrust Test Sacral Thrust Test Imaging: None on file Assessment/ Plan : CRPS L knee s/p R shoulder/ R knee surgery Recommendation of medication management. Soma 350mg #90 w 2 RF. UDS collected 02/27/24. Use, side effects, adverse reactions and safe storage discussed. All questions answered. I have spent greater than 30 minutes on patient care today. Dr Mccain was available by phone for the evaluation of this patient. The time was used to review the medical records including relevant urine studies and Prescription history (MAPs), review of the available imaging, evaluation and examination of the patient, coordination of care with the medical staff and if applicable referring physicians, as well as creation of the medical record PQRS Narrative: Smoking Status Never smoker Hx Alcohol Use (MH) No Home Medications: Ambulatory Orders Acetaminophen Tab [Tylenol] 1,000 mg PO BID PRN 08/28/16 Celecoxib [CeleBREX] 200 mg PO BID 08/28/16 LORazepam [Ativan] 0.5 mg PO TID 08/28/16 Prochlorperazine [Compazine] 20 mg PO BID PRN 08/28/16 Ondansetron Odt [Zofran ODT] 4 mg PO Q8HR PRN #30 tab 09/26/17 Levofloxacin [Levaquin] 500 mg PO DAILY 5 Days #5 tab 12/20/18 Pantoprazole Sodium [Protonix] 40 mg PO DAILY #15 tablet. 12/20/18 metroNIDAZOLE [Flagyl] 500 mg PO TID #15 tab 12/20/18 carisoprodoL [Soma] 350 mg PO TID 30 Days #90 tab 12/19/23 Controlled Substance Measures - Controlled Substance Measures Is patient prescribed a controlled substance at discharge?: Yes When asked, does pt state using other controlled substances?: Yes If prescribed controlled substance>3 days was MAPS reviewed?: Yes
== END ==
LOC: PNWHC3 10:30
PROVIDERS: ATTEND Specialist
DX: G90.522 Complex regional pain syndrome I of left lower limb (principal); Z98.890 Other specified postprocedural states; Z88.1 Allergy status to other antibiotic agents; Z88.5 Allergy status to narcotic agent; Z88.0 Allergy status to penicillin; Z91.012 Allergy to eggs
CPT/HCPCS: 80307; G0463; 99212

== ENCOUNTER → 2024-05-21 | Outpatient (CLI) | payer MEDICARE ==
[2024-05-21 12:37] VITALS: BP 145/63; PULSE 63; RESP 16; TEMP 97.6
--- NOTE | 2024-05-28 11:30 | P.PAINPG ---
PQRS Measure Charge Sheet Comment: HISTORY OF PRESENT ILLNESS: A 68 yr old female presents today w severe and chronic CRPS secondary to R shoulder and R knee surgery for medication refills. Pt states history of Baclofen, Robaxin and Flexeril usage was ineffective in treating spasms but Soma has been the only medication that has helped her bear weight on her feet while having CRPS. Pt states pain level is provoked at 6 /10 in intensity, constant, localized in the R shoulder and R knee, stabbing in character without shooting pain. Pain is provoked by weight bearing activity. Pain is alleviated by medications, topical, heat, PT in 2021, massage therapy monthly x 1 yr w her last visit yesterday, repositioning and rest. New med authorization form completed and faxed on 10/24/23. Interventional procedures include Medications include Soma 350mg #90, Celebrex, Tyl REVIEW OF ORGAN SYSTEMS: CONSTITUTIONAL: No fevers or chills. No recent weight loss. NEUROLOGICAL: + numbness and tingling along the distal extremities. No seizure disorders or headaches. MUSCULOSKELETAL: + pain PSYCHIATRIC: Denies current depression or suicidal thoughts. Physical Examinations : Constitutional : Cooperative , not in acute distress . Neurologic : Cranial nerve II to XII intact. No focal neurological deficits. Psychiatric : alert & oriented x 3. Matching mood & appropriate affect. Judgment & insight intact. Musculoskeletal : Cervical Spine +R shoulder well - healed incisional scars, GH/AC joint line TTP Motor strength in the deltoid and bicep s: Normal right side. Normal Left side Motor strength biceps and the wrist extensors: Normal right side . Normal left side Motor strength in the triceps muscle: Normal right side. Normal left side Deep tendon reflexes: Normal at the biceps. Normal at Brachioradialis. Normal at triceps Vertebral body tenderness to deep palpation over Cervical facet loading test: positive bilaterally Spurling test: positive bilaterally Neck distraction test: positive bilaterally Letha sign: positive bilaterally Lumbar spine +R well- healed incisional scars, nena patellar edema, diffuse TTP Motor strength lower extremities ,thigh and legs 5/5 Right side , 5/5 Left side Deep tendon reflexes : Normal Knee Jerk. Normal Ankle Jerk Vertebral body tenderness over Fragoso Test positive Lumbar facet Loading Test: positive Right / positive Left Range of motion of the lumbar spine Flexion 30 degrees, extension 10 degrees Straight Leg Raise test: Left/ Right positive at degree Shaq test: positive right / positive left. Severe tenderness over the Sacroiliac joint on the Right / Left sides Gaenslen test: positive bilaterally Seated flexion test: positive bilaterally. Sacral spine : Severe tenderness over the Sacroiliac joint: right side / left side Range of motion: Flexion of the lumbar spine <60 degrees Range of motion: Extension of the lumbar spine <20 degrees Gaenslen's Test positive Edis's Test positive Shaq test: positive right side / left side Thigh Thrust Test Sacral Thrust Test Imaging: None on file Assessment/ Plan : CRPS L knee s/p R shoulder/ R knee surgery Recommendation of medication management. Soma 350mg #90 w 2 RF. UDS from 02/27/24 reviewed and consistent. Use, side effects, adverse reactions and safe storage discussed. All questions answered. I have spent greater than 30 minutes on patient care today. Dr Mccain was available by phone for the evaluation of this patient. The time was used to review the medical records including relevant urine studies and Prescription history (MAPs), review of the available imaging, evaluation and examination of the patient, coordination of care with the medical staff and if applicable ref erring physicians, as well as creation of the medical record PQRS Narrative: Smoking Status Never smoker Hx Alcohol Use (MH) No Home Medications: Ambulatory Orders Acetaminophen Tab [Tylenol] 1,000 mg PO BID PRN 08/28/16 Celecoxib [CeleBREX] 200 mg PO BID 08/28/16 LORazepam [Ativan] 0.5 mg PO TID 08/28/16 Prochlorperazine [Compazine] 20 mg PO BID PRN 08/28/16 Ondansetron Odt [Zofran ODT] 4 mg PO Q8HR PRN #30 tab 09/26/17 Levofloxacin [Levaquin] 500 mg PO DAILY 5 Days #5 tab 12/20/18 Pantoprazole Sodium [Protonix] 40 mg PO DAILY #15 tablet. 12/20/18 metroNIDAZOLE [Flagyl] 500 mg PO TID #15 tab 12/20/18 carisoprodoL [Soma] 350 mg PO TID 30 Days #90 tab 05/21/24 Controlled Substance Measures - Controlled Substance Measures Is patient prescribed a controlled substance at discharge?: Yes When asked, does pt state using other controlled substances?: No If prescribed controlled substance>3 days was MAPS reviewed?: Yes
== END ==
LOC: PNWHC3 10:29
PROVIDERS: ATTEND Specialist
DX: G90.50 Complex regional pain syndrome I, unspecified
CPT/HCPCS: 99211

== ENCOUNTER → 2024-08-27 | Outpatient (CLI) | payer MEDICARE ==
[2024-08-27 11:10] VITALS: BP 126/79; PULSE 86; RESP 19; TEMP 98
--- NOTE | 2024-08-27 15:21 | P.PAINPG ---
PQRS Measure Charge Sheet Comment: HISTORY OF PRESENT ILLNESS: A 69 yr old female presents today w severe and chronic CRPS secondary to R shoulder and R knee surgery for medication refills. Pt still maintains a history of Baclofen, Robaxin and Flexeril usage was ineffective in treating spasms but Soma has been the only medication that has helped her bear weight on her feet while having CRPS. Pt states pain level is provoked at 6-7 /10 in intensity, constant, localized in the R shoulder and R knee, stabbing in character without shooting pain. Pain is provoked by weight bearing activity. Pain is alleviated by medications, topical, heat, PT in 2021, massage therapy monthly x 1 yr w her last visit yesterday, repositioning and rest. New med authorization form completed and faxed on 10/24/23. Interventional procedures include Medications include Soma 350mg #90, Celebrex, Tyl REVIEW OF ORGAN SYSTEMS: CONSTITUTIONAL: No fevers or chills. No recent weight loss. NEUROLOGICAL: + numbness and tingling along the distal extremities. No seizure disorders or headaches. MUSCULOSKELETAL: + pain PSYCHIATRIC: Denies current depression or suicidal thoughts. Physical Examinations : Constitutional : Cooperative , not in acute distress . Neurologic : Cranial nerve II to XII intact. No focal neurological deficits. Psychiatric : alert & oriented x 3. Matching mood & appropriate affect. Judgment & insight intact. Musculoskeletal : Cervical Spine +R shoulder well - healed incisional scars, GH/AC joint line TTP Motor strength in the deltoid and biceps: Normal right side. Normal Left side Motor strength biceps and the wrist extensors: Normal right side . Normal left side Motor strength in the triceps muscle: Normal right side. Normal left side Deep tendon reflexes: Normal at the biceps. Normal at Brachioradialis. Normal at triceps Vertebral body tenderness to deep palpation over Cervical facet loading test: positive bilaterally Spurling test: positive bilaterally Neck distraction test: positive bilaterally Letha sign: positive bilaterally Lumbar spine +R well- healed incisional scars, nena patellar edema, diffuse TTP Motor strength lower extremities ,thigh and legs 5/5 Right side , 5/5 Left side Deep tendon reflexes : Normal Knee Jerk. Normal Ankle Jerk Vertebral body tenderness over Fragoso Test positive Lumbar facet Loading Test: positive Right / positive Left Range of motion of the lumbar spine Flexion 30 degrees, extension 10 degrees Straight Leg Raise test: Left/ Right positive at degree Shaq test: positive right / positive left. Severe tenderness over the Sacroiliac joint on the Right / Left sides Gaenslen test: positive bilaterally Seated flexion test: positive bilaterally. Sacral spine : Severe tenderness over the Sacroiliac joint: right side / left side Range of motion: Flexion of the lumbar spine <60 degrees Range of motion: Extension of the lumbar spine <20 degrees Gaenslen's Test positive Edis's Test positive Shaq test: positive right side / left side Thigh Thrust Test Sacral Thrust Test Imaging: None on file Assessment/ Plan : CRPS L knee s/p R shoulder/ R knee surgery Recommendation of medication management. Soma 350mg #90 w 2 RF. UDS from 02/27/24 reviewed and consistent. Use, side effects, adverse reactions and safe storage discussed. All questions answered. I have spent greater than 30 minutes on patient care today. Dr Mccain was available by phone for the evaluation of this patient. The time was used to review the medical records including relevant urine studies and Prescription history (MAPs), review of the available imaging, evaluation and examination of the patient, coordination of care with the medical staff and if applicable referring physicians, as well as creation of the medical record PQRS Narrative: Smoking Status Never smoker Hx Alcohol Use (MH) No Home Medications: Ambulatory Orders Acetaminophen Tab [Tylenol] 1,000 mg PO BID PRN 08/28/16 Celecoxib [CeleBREX] 200 mg PO BID 08/28/16 LORazepam [Ativan] 0.5 mg PO TID 08/28/16 Prochlorperazine [Compazine] 20 mg PO BID PRN 08/28/16 Ondansetron Odt [Zofran ODT] 4 mg PO Q8HR PRN #30 tab 09/26/17 Levofloxacin [Levaquin] 500 mg PO DAILY 5 Days #5 tab 12/20/18 Pantoprazole Sodium [Protonix] 40 mg PO DAILY #15 tablet. 12/20/18 metroNIDAZOLE [Flagyl] 500 mg PO TID #15 tab 12/20/18 carisoprodoL [Soma] 350 mg PO TID 30 Days #90 tab 08/27/24 Controlled Substance Measures - Controlled Substance Measures Is patient prescribed a controlled substance at discharge?: Yes When asked, does pt state using other controlled substances?: Yes If prescribed controlled substance>3 days was MAPS reviewed?: Yes
== END ==
LOC: PNWHC3 10:49
PROVIDERS: ATTEND Specialist
DX: M19.071 Primary osteoarthritis, right ankle and foot (principal); G90.50 Complex regional pain syndrome I, unspecified; Z98.890 Other specified postprocedural states; Z88.1 Allergy status to other antibiotic agents; Z88.0 Allergy status to penicillin; Z91.012 Allergy to eggs; Z88.5 Allergy status to narcotic agent
CPT/HCPCS: 99211

== ENCOUNTER → 2024-11-19 | Outpatient (CLI) | payer MEDICARE ==
[2024-11-19 10:36] VITALS: BP 129/79; PULSE 97; RESP 16; TEMP 96
--- NOTE | 2024-11-19 15:48 | P.PAINPG ---
Objective - Vital Signs Vital signs: Intake & Output 11/18/24 11/19/24 11/19/24 18:59 06:59 18:59 Weight 88.904 kg PQRS Measure Charge Sheet Comment: HISTORY OF PRESENT ILLNESS: A 69 yr old female presents today w severe and chronic CRPS secondary to R shoulder and R knee surgery for medication refills. Pt has a history of trying Baclofen, Robaxin and Flexeril without relief. Soma has been the only medication that has helped her bear weight on her feet while having CRPS. Pt states pain level is provoked at 8 /10 in intensity, constant, localized in the R shoulder and R knee, stabbing in character without shooting pain. Pain is provoked by weight bearing activity. Pain is alleviated by medications, topical, heat, PT in 2021, massage therapy monthly x 1 yr w her last visit yesterday, repositioning and rest. New med authorization form completed and faxed on 10/24/23. Interventional procedures include Medications include Soma 350mg #90, Celebrex, Tyl REVIEW OF ORGAN SYSTEMS: CONSTITUTIONAL: No fevers or chills. No recent weight loss. NEUROLOGICAL: + numbness and tingling along the distal extremities. No seizure disorders or headaches. MUSCULOSKELETAL: + pain PSYCHIATRIC: Denies current depression or suicidal thoughts. Physical Examinations : Constitutional : Cooperative , not in acute distress . Neurologic : Cranial nerve II to XII intact. No focal neurological deficits. Psychiatric : alert & oriented x 3. Matching mood & appropriate affect. Judgment & insight intact. Musculoskeletal : Cervical Spine +R shoulder well - healed incisional scars, GH/AC joint line TTP Motor strength in the deltoid and biceps: Normal right side. Normal Left side Motor strength biceps and the wrist extensors: Normal right side . Normal left side Motor strength in the triceps muscle: Normal right side. Normal left side Deep tendon reflexes: Normal at the biceps. Normal at Brachioradialis. Normal at triceps Vertebral body tenderness to deep palpation over Cervical facet loading test: positive bilaterally Spurling test: positive bilaterally Neck distraction test: positive bilaterally Letha sign: positive bilaterally Lumbar spine +R well- healed incisional scars, nena patellar edema, diffuse TTP Motor strength lower extremities ,thigh and legs 5/5 Right side , 5/5 Left side Deep tendon reflexes : Normal Knee Jerk. Normal Ankle Jerk Vertebral body tenderness over Fragoso Test positive Lumbar facet Loading Test: positive Right / positive Left Range of motion of the lumbar spine Flexion 30 degrees, extension 10 degrees Straight Leg Raise test: Left/ Right positive at degree Shaq test: positive right / positive left. Severe tenderness over the Sacroiliac joint on the Right / Left sides Gaenslen test: positive bilaterally Seated flexion test: positive yaakov aterally. Sacral spine : Severe tenderness over the Sacroiliac joint: right side / left side Range of motion: Flexion of the lumbar spine <60 degrees Range of motion: Extension of the lumbar spine <20 degrees Gaenslen's Test positive Edis's Test positive Shaq test: positive right side / left side Thigh Thrust Test Sacral Thrust Test Imaging: None on file Assessment/ Plan : CRPS L knee s/p R shoulder/ R knee surgery Recommendation of medication management. Soma 350mg #90 w 2 RF. UDS from 02/27/24 reviewed and consistent. Use, side effects, adverse reactions and safe storage discussed. All questions answered. I have spent greater than 30 minutes on patient care today. Dr Mccain was available by phone for the evaluation of this patient. The time was used to review the medical records including relevant urine studies and Prescription history (MAPs), review of the available imaging, evaluation and examination of the patient, coordination of care with the medical staff and if applicable referring physicians, as well as creation of the medical record PQRS Narrative: Smoking Status Never smoker Narcotic Agreement Date Signed 08/27/24 Hx Alcohol Use (MH) No Home Medications: Ambulatory Orders Acetaminophen Tab [Tylenol] 1,000 mg PO BID PRN 08/28/16 Celecoxib [CeleBREX] 200 mg PO BID 08/28/16 LORazepam [Ativan] 0.5 mg PO TID 08/28/16 Prochlorperazine [Compazine] 20 mg PO BID PRN 08/28/16 Ondansetron Odt [Zofran ODT] 4 mg PO Q8HR PRN #30 tab 09/26/17 Levofloxacin [Levaquin] 500 mg PO DAILY 5 Days #5 tab 12/20/18 Pantoprazole Sodium [Protonix] 40 mg PO DAILY #15 tablet. 12/20/18 metroNIDAZOLE [Flagyl] 500 mg PO TID #15 tab 12/20/18 carisoprodoL [Soma] 350 mg PO TID 30 Days #90 tab 08/27/24 Controlled Substance Measures - Controlled Substance Measures Is patient prescribed a controlled substance at discharge?: Yes When asked, does pt state using other controlled substances?: Yes If prescribed controlled substance>3 days was MAPS reviewed?: Yes
== END ==
LOC: PNWHC3 10:07
PROVIDERS: ATTEND Specialist
DX: G90.522 Complex regional pain syndrome I of left lower limb (principal); G90.511 Complex regional pain syndrome I of right upper limb; Z88.1 Allergy status to other antibiotic agents; Z88.5 Allergy status to narcotic agent; Z91.012 Allergy to eggs; Z88.0 Allergy status to penicillin
CPT/HCPCS: 99211

== ENCOUNTER → 2025-01-14 | Outpatient (CLI) | payer MEDICARE ==
--- NOTE | 2025-01-15 07:50 | MM ---
Reason for Exam: Screening (asymptomatic). Last mammogram was performed 1 year(s) and 4 month(s) ago. Patient History: Menarche at age 13. First Full-Term at age 32. Late child-bearing (after 31). Hysterectomy at age 36. Patient has history of breast feeding. Maternal aunt had breast cancer, age 60. Risk Values: Tammi 5 year model risk: 2.4%. NCI Lifetime model risk: 7.6%. Prior Study Comparison: 10/15/2018 Bilateral Screening Mammogram, [facility]. 05/11/2021 Bilateral Screening Mammogram, [facility]. 09/25/2023 Bilateral MG 3D screening mammo w/cad, [facility]. Tissue Density: The breasts are almost entirely fatty. Findings: Analyzed By CAD. Right breast: There is no suspicious group of microcalcifications or new suspicious mass. Left breast: There is no suspicious group of microcalcifications or new suspicious mass. Overall Assessment: Negative, BI-RAD 1 Management: Screening Mammogram of both breasts in [address] [facility] will attempt to contact patient to return for supplemental views and ultrasound if indicated. Patient should continue monthly self-breast exams. A clinical breast exam by your physician is recommended on an annual basis. This exam should not preclude additional follow-up of suspicious palpable abnormalities. Note on Tammi scores and lifetime risk: 1. A Tammi score greater than 3% is considered moderate risk. If this is the case, consider specialist referral to assess eligibility for a risk reducing agent. 2. If overall lifetime risk for the development of breast cancer is 20% or higher, the patient may qualify for future screening with alternating mammogram and breast MRI. [facility], , 01/15/2025 7:47 AM. Electronically signed and approved by: Oswald Moon DO
== END | disposition home or self-care (01) ==
LOC: RADMAMWWP 14:41
PROVIDERS: ATTEND Family Medicine
DX: Z12.31 Encounter for screening mammogram for malignant neoplasm of breast (principal); R92.313 Mammographic fatty tissue density, bilateral breasts; Z80.3 Family history of malignant neoplasm of breast
CPT/HCPCS: 77063; 77067